=== PATIENT | female | born 1995 | race Caucasian/White ===

== ENCOUNTER 2024-01-25 14:46 | Outpatient (CLI) | payer BC, SELFPAY ==
[2024-01-25 15:12] LABS: Basophils Absolute Auto 0.1 K/mm3 (0.0-0.1); Basophils Percent Auto 0.6 % (0.2-1.2); Eosinophils Absolute Auto 0.1 K/mm3 (0-0.3); Eosinophils Percent Auto 1.3 % (0-4.4); Hematocrit 36.2 % (37.0-47.0); Hemoglobin 12.7 g/dL (12.0-15.0); Immature Granulocyte Absolute 0.02 K/mm3 (0.00-0.031); Immature Granulocyte Percent A 0.2 % (0-0.5); Lymphocytes Absolute Auto 2.16 K/mm3 (0.9-3.2); Lymphocytes Percent Auto 24.6 % (18.3-44.2); Mean Corpuscular HGB Conc 35.1 g/dl (32-36); Mean Corpuscular Hemoglobin 31.2 pg (26-34); Mean Corpuscular Volume 88.9 fl (80-100); Mean Platelet Volume 9.9 fl (7.4-10.4); Monocytes Absolute Auto 0.4 K/mm3 (0.1-0.6); Neutrophils Percent Auto 68.3 % (45.5-73.1); Platelet Count Result 241 k/mm3 (150-375); Red Blood Count 4.07 M/mm3 (4.2-5.4); White Blood Count 8.8 K/mm3 (4.5-10.0)
[2024-01-25 16:10] LABS: HIV 1/2 Ab P24 Ag Result Negative (Negative)
[2024-01-25 16:33] LABS: Hepatitis B Surface Antigen Negative (Negative); Rubella IgG Antibody 5.8 IU/ML
[2024-01-26 08:39] LABS: Rapid Plasma Reagin Non-Reactive (NonReactive)
[2024-01-27 07:28] LABS: CMV IgG Antibody <0.60 U/mL; Varicella IgG Antibody 3.51 S/CO
[2024-02-03 15:03] LABS: CF Result NEGATIVE
== END 2024-01-25 14:47 | disposition home or self-care (01) ==
PROVIDERS: PCP Obstetrics & Gynecology; Visit Provider Obstetrics & Gynecology
DX: N92.1 Excessive and frequent menstruation with irregular cycle (principal)
CPT/HCPCS: 36415; 81220; 85025; 86592; 86644; 86703; 86747; 86762; 86787; 86850; 86900; 86901; 87086; 87340; G0432

== ENCOUNTER 2024-05-10 04:30 | Observation (INO) | payer BC, SELFPAY ==
--- OUTSIDE RECORDS SUMMARY | 2024-05-10 04:19 | XMS_ITS | Encounter Summary ---
Demographics Address [address] [place] [address] [place] [address] Mobile Phone Home Phone Email Address Preferred Language Peruvian Marital Status Single Judaism Affiliation Unknown Race White Ethnic Group Not or Lati no Author Organization [facility] Address [address] [place] [address] Phone Care Team Providers Care Pediatric Hospitalist Name Role Phone Tania Berry DO Primary Care Provider [phone] Referring, Unknown MD Primary Care Provider Unav ailable Encounter Details Date Type Department Care Team (Late st Contact Info) Description 03/11/2022 Orders Only [facility] [address] [place] [address] Scanning, Provider Social History Tobacco Use Types Packs/Day Years Used Date Smoking Tobacco: Never Smokeless Tobacco: Never Alcohol Use Standard Drinks/Week Comments No 0 (1 standard drink = 0.6 oz pur e alcohol) PHQ-2 Answer Date Recorded PHQ-2 Total Score (If total score is 3 or more points, staff should administer the PHQ-9) 1 09/19/2019 Comments No Sex and Gender Information Value Date Recorded Sex Assigned at Not on file Legal Sex Female 7:32 PM BARREL INSPECTOR Gender Identity Not on file Sexual Orientation Not on file Occupation Industry Job Start Date Job End Date Insurance Not on file Not on file Not on file documented as of this encounter Plan of Treatment Not on file documented as of this encounter Procedures Procedure Name Priority Date/Time Associated Diagnosis Comments SCAN - LABS 03/11/2022 documented in this encounter Results * SCAN - LABS (03/11/2022) us Provider Scanning Final Result documented in this encounter Visit Diagnoses Not on filedocumented in this encounter Care Teams Pediatric Hospitalist Relationship Specialty Start Date End Date Tania Berry DO PCP - General Family Medicine 09/24/17 11/26/23 Referring, Unknown, PCP - General Pediatrics 03/25/24 documented as of this encounter
--- OUTSIDE RECORDS SUMMARY | 2024-05-10 04:19 | XMS_ITS | Clinical Summary ---
Author Organization [facility] [address] Address [address] [place] [address] Phone Care Team Providers Care Forming Fixer Name Role Phone Referring, Unknown MD Primary Care Provider Unav ailable Allergies No known active allergies Medications clonazePAM (KlonoPIN) 0.5 mg tabletIndicatio ns:Generalized anxiety disorder Take 1 tablet (0.5 mg total) by mouth daily as needed for anxiety 30 tablet 5 0 Active Additional Information Patient not taking.Reported on 12/02/2019 cetirizine (ZyrTEC) 10 mg tablet 0 Active fluticasone propionate (FLONASE) 50 mcg/actuation nasal spray Administer 1-2 sprays into affected nostril(s) daily 0 Active venlafaxine 37.5 mg tablet extended release 24hr 24 hr tablet Take 37.5 mg by mouth daily Active nortriptyline (PAMELOR) 10 mg capsule Take 1 capsule (10 mg total) by mouth nightly 2 Active Active Problems Problem Noted Date Diagnosed Date Chronic constipation 10/20/2019 Overview (10/20/2019): Added automatically from request for surgery [id number] Assessment & Plan (12/29/2019 3:34 PM MACHINIST MATE): Chronic idiopathic constipation secondary to irritable bowel syndrome. I will increase Linzess to 290 micro g daily. Patient was also advised to use and drink juice every day with MiraLax. Follow-up in 3 months Blood in stool 10/20/2019 Overview (10/20/2019): Added automatically from request for surgery [id number] BMI 21.0-21.9, adult 09/19/2019 Generalized anxiety disorder 09/19/2019 Assessment & Plan (09/19/2019 2:50 PM CDT): Recommended counseling. Patient will contact her insurance company for an in- network referral. S/P shoulder surgery 05/03/2018 Overview (09/19/2019): right Assessment & Plan (07/16/2018 11:06 AM CDT): D/C Aleve, trial of diclofenac, take with food as directed. Follow up with Ortho. Chronic right shoulder pain 09/25/2017 Assessment & Plan (01/01/2018 3:05 PM MACHINIST MATE): Cont Aleve, use as directed. Referred to Ortho for further eval/mgmt. Assessment & Plan (09/25/2017 11:46 AM CDT): Encouraged patient to make life-style modifications, such as avoiding lifting heavy objects. ROM exercises and strengthening exercises may also be helpful. May use OTC pain reliever on days where pain levels are > 3. RTC in 3 months. Consider referral to Ortho if no improvement. Resolved Problems Problem Noted Date Diagnosed Date Resolved Date Impingement syndrome of right shoulder 11/03/2018 09/19/2019 Overview (11/03/2018): Added automatically from request for surgery [id number] Arthritis of right acromioclavicular joint 11/03/2018 09/19/2019 Overview (11/03/2018): Added automatically from request for surgery [id number] Biceps tendinitis on right 11/03/2018 0 09/19/2019 Overview (11/03/2018): Added automatically from request for surgery [id number] Nontraumatic incomplete tear of right rotator cuff 09/06/2018 09/19/2019 Subacromial impingement of right shoulder 03/19/2018 09/19/2019 Overuse injury 09/25/2017 09/19/2019 Otitis media 12/11/2013 05/18/2017 Overview (05/22/2016): Otitis media Immunizations Immunization Administration Dates Next Due Influenza, Quadrivalent, Spl it, Preservative Free, Intramuscular 12/02/2018 Meningococcal MCV4P (Menactra) 09/23/2013 Varicella 09/23/2013 Surgical History Surgery Date Site/Laterality Comments COLONOSCOPY 11/28/2019 first SHOULDER SURGERY 02/16/2018 - 02/15/2019 Medical History Medical History Date Comments Motion sickness not very often Dysmenorrhea treated with oral contraceptive Improved 11/18/18 Irritable bowel syndrome Family History Medical History Relation Name Comments Diabetes Maternal Grandmother Hypertension Mother Kidney disease Mother Relation Name Status Comments Maternal Grandmother Mother Social History Tobacco Use Types Packs/Day Years Used Date Smoking Tobacco: Never Smokeless Tobacco: Never Tobacco Cessation:Counseling Given: Not Answered Alcohol Use Standard Drinks/Week Comments No 0 (1 standard drink = 0.6 oz pur e alcohol) PHQ-2 Answer Date Recorded PHQ-2 Total Score (If total score is 3 or more points, staff should administer the PHQ-9) 1 09/19/2019 Comments No Sex and Gender Information Value Date Recorded Sex Assigned at Not on file Legal Sex Female 7:32 PM MACHINIST MATE Gender Identity Not on file Sexual Orientation Not on file Occupation Industry Job Start Date Job End Date Not on file Not on file Not on file Not on file Obstetrics History Para Term AB IAB SAB Ectopic Multiple Livin g Live Births 0 0 0 0 0 0 0 0 0 0 0 Last Filed Vital Signs Vital Sign Reading Time Taken Comments Blood Pressure 120/82 03/27/2023 3:18 PM MACHINIST MATE Pulse 91 12/29/2019 3:23 PM MACHINIST MATE Temperature 36.6 C (97.8 F) 12/29/2019 3:23 PM MACHINIST MATE Respiratory Rate 16 12/29/2019 3:23 PM MACHINIST MATE Oxygen Saturation 99% 12/29/2019 3:23 PM MACHINIST MATE Inhaled Oxygen Concentration - - Weight 52.6 kg (116 lb) 03/27/2023 3:18 PM MACHINIST MATE Height 157.5 cm (5' 2 ) 03/27/2023 3:18 PM MACHINIST MATE Body Mass Index 21.22 03/27/2023 3:18 PM MACHINIST MATE Plan of Treatment Health Maintenance Due Date Last Done Comments Hepatitis C Screening 1995 HPV Vaccines (3 - 3-dose series) 05/18/2013 02/23/2013, 10/13/2012 Varicella Vaccines (2 of 2 - 13+ 2-dose series) 10/21/2013 09/23/2013, 09/23/2013 Hepatitis B Screening 2014 Depression Screening 09/18/2020 09/19/2019, 12/02/2018, 01/01/2018, Additional history exists Cervical Cancer Screening 03/07/20232022, 12/02/2019, 05/18/2017 Regular Well Visit/Exam 18-64 03/27/2024 03/27/2023, 03/07/2022, 12/19/2020, Additional history exists DTaP/Tdap/Td Vaccine (2 - Td or Tdap) 08/13/2030 08/13/2020 Influenza Vaccine Discontinued 03/13/2020, 12/02/2018 Pneumococcal vaccine <65 Aged Out No longer eligible based on patient's age to complete this topic Medical Devices Implanted Type Area Bracelet And Brooch Maker Device Identifier Shelf Expiration Date Model / Serial / Lot [employer] Ar-2923bc Pushlock 2.9mm 12.5mm Cannulated Eyelet Handle Assembly Press Operator Short - [id number] Implanted:Qty: 1 on 11/25/2018 by Scott Mayo MD at [facility] Right: Shoulder [employer] 08/15/2020 AR-2923BC / / [id number] Procedures Procedure Name Priority Date/Time Associated Diagnosis Comments PAP WITH REFLEX TO HIGH RISK HPV Routine 03/07/2022 9:10 AM MACHINIST MATE Screening for malignant neoplasm of the cervix from Last 3 Months or Most Recently Relevant to Health Maintenance Results * Pap with reflex to High Risk HPV (03/07/2022 9:10 AM MACHINIST MATE) Thin prep (Pap test) 03/07/2022 9:10 AM MACHINIST MATE 03/07/2022 9:10 AM MACHINIST MATE Narrative PATHOLOGY CH - 03/11/2022 1:09 PM MACHINIST MATE [facility] Department of Pathology [address] [place], [place] [id number] Final Report Note to Patients: This report may contain a detailed description of human tissue sent by a health care provider to the laboratory for pathologic evaluation. The content of this report is essential for diagnosis and may provide important critical findings. This information may be unfamiliar to patients to review without a medical professional present. It is advised that the patient review this report in the presence of a health care provider who can answer questions and explain the details. Patient Name: LYUDMILA CODY Address: [address] [place] [address] Gender: F : 1995 (Age: 26) Service: Location: N : [id number] [facility] #: [id number] Patient Type: SPECIMEN Taken: 03/07/2022 Received: 03/07/2022 Accessioned:: 03/10/2022 Reported: 03/11/2022 Physician(s): MD Sandra Perez MD Diagnosis: Source of Specimen: Imaged Thinprep Pap Test w/ Reflex HPV - Snow Shoveler Cytologic Material Specimen Adequacy: - Satisfactory for evaluation; endocervical/transformation zone component present General Category: - Negative for intraepithelial lesion or malignancy KEITH Pathak(ASCP) Report Electronically Reviewed and Signed Out By KEITH Pathak(ASCP) 03/11/2022 13:09:42Specimen(s) Received: A: Imaged Thinprep Pap Test w/ Reflex HPV - Snow Shoveler Cytologic Material Clinical History: Last Menstrual Period: 02/17/22 The Pap test is a screening test used to aid in the detection of cervical cancer and its precursors. It should not be the sole means by which malignant and premalignant lesions are diagnosed. Both false negative and false positive results may occur. It also has poor sensitivity for the detection of endometrial lesions and should not be used to evaluate suspected endometrial abnormalities. For these reasons it is most important to obtain Pap tests at regular intervals. The performance characteristics of some immunohistochemical stains, fluorescence in-situ hybridization tests and immunophenotyping by flow cytometry cited in this report (if any) were determined by the Surgical Pathology Department at [facility] as part of an ongoing quality improvement consultant program and in compliance with federally mandated regulations drawn from the Clinical Laboratory Improvement Act of 1988 (CLIA '88). Some of these tests rely on the use of analyte specific reagents and are subject to specific labeling requirements by the US Food and Drug Administration. Such diagnostic tests may only be performed in a facility that is certified by the Department of Health and Human Services as a high complexity laboratory under CLIA '88. The FDA has determined that such clearance or approval is not necessary. This test is used for clinical purposes. It should not be regarded as investigational or for research. Nevertheless, federal rules concerning the medical use of analyte specific reagents require that the following disclaimer be attached to the report: This test was developed and its performance characteristics determined by the Surgical Pathology Department [facility]. It has not been cleared or approved by the U. S. Food and Drug Administration. Sandra Vincent MD LAB CYTOLOGY ORDERABL ES Final Result Performing Organization Address City/State/ZIP [place] Phone Number PATHOLOGY [address] [place] [address] from Last 3 Months or Most Recently Relevant to Health Maintenance Insurance [employer] [facility] HEALTHLINK OPEN ACCESS HEALTHLINK OPEN ACCESS Advance Directives For more information, please contact: [phone] * Full Code (Latest Code Status on File) Date Activated Date Inactivated Comments 11/28/2019 1:04 PM 11/28/2019 7:27 PM Care Teams Forming Fixer Relationship Specialty Start Date End Date Referring, Unknown, PCP - General Pediatrics 03/25/24
--- OUTSIDE RECORDS SUMMARY | 2024-05-10 04:19 | XMS_ITS | Referral Summary ---
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 I will increase Linzess to 290 micro g daily. Patient was also advised to use and drink juice every day with MiraLax. Follow-up in 3 months Blood in stool 10/20/2019 Overview (10/20/2019): Added automatically from request for surgery [id number] BMI 21.0-21.9, adult 09/19/2019 Generalized anxiety disorder [...] 09/25/2017 Assessment & Plan (01/01/2018 3:05 PM DATA REVIEWER): Cont Aleve, use as directed. Referred to [...] (11/03/2018): Added automatically from request for surgery [id number] Arthritis of right acromioclavicular joint 11/03/2018 09/19/2019 Overview (11/03/2018): Added automatically from request for surgery [id number] Biceps tendinitis on right 11/03/2018 0 09/19/2019 Overview (11/03/2018): Added automatically from request for surgery [id number] Nontraumatic incomplete tear of right rotator cuff 09/06/2018 09/19/2019 Subacromial impingement of right shoulder 03/19/2018 09/19/2019 Overuse injury 09/25/2017 09/19/2019 Otitis media 12/11/2013 05/18/2017 Overview (05/22/2016): Otitis media Immunizations Immunization Administration Dates Next Due Influenza, Quadrivalent, Spl it, Preservative Free, Intramuscular 12/02/2018 Meningococcal MCV4P (Menactra) 09/23/2013 Varicella 09/23/2013 Social History Tobacco Use Types Packs/Day Years [...] on file Legal Sex Female 7:32 PM DATA REVIEWER Gender Identity Not on file Sexual Orientation Not on file Occupation Industry Job Start Date Job End Date Not on file Not on file Not on file Not on file Last Filed Vital Signs Vital Sign Reading Time Taken Comments Blood Pressure 120/82 03/27/2023 3:18 PM DATA REVIEWER Pulse 91 12/29/2019 3:23 PM DATA REVIEWER Temperature 36.6 C (97.8 F) 12/29/2019 3:23 PM DATA REVIEWER Respiratory Rate 16 12/29/2019 3:23 PM DATA REVIEWER Oxygen Saturation 99% 12/29/2019 3:23 PM DATA REVIEWER Inhaled Oxygen Concentration - - Weight 52.6 kg (116 lb) 03/27/2023 3:18 PM DATA REVIEWER Height 157.5 cm (5' 2 ) 03/27/2023 3:18 PM DATA REVIEWER Body Mass Index 21.22 03/27/2023 3:18 PM DATA REVIEWER Plan of Treatment Not on file Medical Devices Implanted Type Area Deposit Clerk Device Identifier Shelf Expiration Date Model / Serial / Lot [employer] Ar-2923bc Pushlock 2.9mm 12.5mm Cannulated Eyelet Handle Orthotic Finish Grinding Technician Short - [id number] Implanted:Qty: 1 on 11/25/2018 by Scott Mayo MD at [facility] Right: Shoulder [employer] 08/15/2020 AR-2923BC / / [id number] Procedures Procedure Name Priority Date/Time Associated Diagnosis Comments PAP WITH REFLEX TO HIGH RISK HPV Routine 03/07/2022 9:10 AM DATA REVIEWER Screening for malignant neoplasm of the cervix from Last 3 Months or Most Recently Relevant to Health Maintenance Results * Pap with reflex to High Risk HPV (03/07/2022 9:10 AM DATA REVIEWER) Thin prep (Pap test) 03/07/2022 9:10 AM DATA REVIEWER 03/07/2022 9:10 AM DATA REVIEWER Narrative PATHOLOGY CH - 03/11/2022 1:09 PM DATA REVIEWER [facility] Department of Pathology [address] [place] [id number] Final Report Note to Patients: This report [...] the details. Patient Name: LYUDMILA CODY Address: [address] [place] [address] Gender: F : 1995 (Age: 26) Service: Location: N : [id number] [facility] #: [id number] Patient Type: SPECIMEN Taken: 03/07/2022 Received: 03/07/2022 Accessioned:: 03/10/2022 Reported: 03/11/2022 Physician(s): MD Sandra Perez MD Diagnosis: Source of Specimen: Imaged Thinprep Pap Test w/ Reflex HPV - Reduction Furnace Operator Helper Cytologic Material Specimen Adequacy: - Satisfactory for evaluation; endocervical/transformation zone component present General Category: - Negative for intraepithelial lesion or malignancy KETIH Pathak(ASCP) Report Electronically Reviewed and Signed Out By KEITH Pathak(ASCP) 03/11/2022 13:09:42Specimen(s) Received: A: Imaged Thinprep Pap Test w/ Reflex HPV - Reduction Furnace Operator Helper Cytologic Material Clinical History: Last Menstrual Period: [...] determined by the Surgical Pathology Department at [facility] as part of an ongoing associate quality engineer program and in compliance with federally mandated [...] characteristics determined by the Surgical Pathology Department [facility]. It has not been cleared or approved by the U. S. Food and Drug Administration. Sandra Vincent MD LAB CYTOLOGY ORDERABL ES Final Result PATHOLOGY [address] [place] [address] from Last 3 Months or Most Recently Relevant to Health Maintenance Insurance [employer] [place] [address] HEALTHLINK OPEN ACCESS Advance Directives For more information, please contact: [phone] * Full Code (Latest Code Status on File) Date Activated Date Inactivated Comments 11/28/2019 1:04 PM 11/28/2019 7:27 PM Care Teams Grizzly Worker Relationship Specialty Start Date End Date Referring, Unknown, PCP - General Pediatrics 03/25/24
[2024-05-10 04:26] VITALS: BP 132/92; PULSE 73; RESP 14; TEMP 36.5; O2SAT 100
--- OUTSIDE RECORDS SUMMARY | 2024-05-10 04:41 | XMS_ITS | Clinical Summary ---
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 I will increase Linzess to 290 micro g daily. Patient was also advised to use and drink juice every day with MiraLax. Follow-up in 3 months Blood in stool 10/20/2019 Overview (10/20/2019): Added automatically from request for surgery [id number] BMI 21.0-21.9, adult 09/19/2019 Generalized anxiety disorder [...] 09/25/2017 Assessment & Plan (01/01/2018 3:05 PM RN PALLIATIVE CARE): Cont Aleve, use as directed. Referred to [...] (11/03/2018): Added automatically from request for surgery [id number] Arthritis of right acromioclavicular joint 11/03/2018 09/19/2019 Overview (11/03/2018): Added automatically from request for surgery [id number] Biceps tendinitis on right 11/03/2018 0 09/19/2019 Overview (11/03/2018): Added automatically from request for surgery [id number] Nontraumatic incomplete tear of right rotator cuff [...] on file Legal Sex Female 7:32 PM RN PALLIATIVE CARE Gender Identity Not on file Sexual Orientation [...] Comments Blood Pressure 120/82 03/27/2023 3:18 PM RN PALLIATIVE CARE Pulse 91 12/29/2019 3:23 PM RN PALLIATIVE CARE Temperature 36.6 C (97.8 F) 12/29/2019 3:23 PM RN PALLIATIVE CARE Respiratory Rate 16 12/29/2019 3:23 PM RN PALLIATIVE CARE Oxygen Saturation 99% 12/29/2019 3:23 PM RN PALLIATIVE CARE Inhaled Oxygen Concentration - - Weight 52.6 kg (116 lb) 03/27/2023 3:18 PM RN PALLIATIVE CARE Height 157.5 cm (5' 2 ) 03/27/2023 3:18 PM RN PALLIATIVE CARE Body Mass Index 21.22 03/27/2023 3:18 PM RN PALLIATIVE CARE Plan of Treatment Health Maintenance Due Date [...] this topic Medical Devices Implanted Type Area Search Advertising Strategist Device Identifier Shelf Expiration Date Model / Serial / Lot [employer] Ar-2923bc Pushlock 2.9mm 12.5mm Cannulated Eyelet Handle Decision Support Analyst Short - [id number] Implanted:Qty: 1 on 11/25/2018 by Scott Mayo MD at [facility] Right: Shoulder [employer] 08/15/2020 AR-2923BC / / [id number] Procedures Procedure Name Priority Date/Time Associated Diagnosis Comments PAP WITH REFLEX TO HIGH RISK HPV Routine 03/07/2022 9:10 AM RN PALLIATIVE CARE Screening for malignant neoplasm of the cervix from Last 3 Months or Most Recently Relevant to Health Maintenance Results * Pap with reflex to High Risk HPV (03/07/2022 9:10 AM RN PALLIATIVE CARE) Thin prep (Pap test) 03/07/2022 9:10 AM RN PALLIATIVE CARE 03/07/2022 9:10 AM RN PALLIATIVE CARE Narrative PATHOLOGY CH - 03/11/2022 1:09 PM RN PALLIATIVE CARE [facility] Department of Pathology [address] [place], [place] [id number] Final Report Note to Patients: This report [...] the details. Patient Name: LYUDMILA CODY Address: [address] [place] [address] Gender: F : 1995 (Age: 26) Service: Location: N : [id number] [facility] #: [id number] Patient Type: SPECIMEN Taken: 03/07/2022 Received: 03/07/2022 Accessioned:: 03/10/2022 Reported: 03/11/2022 Physician(s): MD Sandra Perez MD Diagnosis: Source of Specimen: Imaged Thinprep Pap Test w/ Reflex HPV - Accounting Lecturer Cytologic Material Specimen Adequacy: - Satisfactory for evaluation; endocervical/transformation zone component present General Category: - Negative for intraepithelial lesion or malignancy KEITH Pathak(ASCP) Report Electronically Reviewed and Signed Out By KEITH Pathak(ASCP) 03/11/2022 13:09:42Specimen(s) Received: A: Imaged Thinprep Pap Test w/ Reflex HPV - Accounting Lecturer Cytologic Material Clinical History: Last Menstrual Period: [...] the Surgical Pathology Department at [facility] as part of an ongoing fiberglass quality technician program and in compliance with federally mandated [...] determined by the Surgical Pathology Department [facility]. It has not been cleared or approved by the U. S. Food and Drug Administration. Sandra Vincent MD LAB CYTOLOGY ORDERABL ES Final Result Performing Organization Address City/State/ZIP [place] Phone Number PATHOLOGY [address] [place] [address] from Last 3 Months or Most Recently Relevant to Health Maintenance Insurance [employer] [facility] HEALTHLINK OPEN ACCESS HEALTHLINK OPEN ACCESS Advance Directives For more information, please contact: [phone] * Full Code (Latest Code Status on File) Date Activated Date Inactivated Comments 11/28/2019 1:04 PM 11/28/2019 7:27 PM Care Teams Fourth Officer Relationship Specialty Start Date End Date Referring, Unknown, PCP - General Pediatrics 03/25/24
--- OUTSIDE RECORDS SUMMARY | 2024-05-10 04:41 | XMS_ITS | Referral Summary ---
Author Organization CC [facility] [address] Address [address] [place] [address] Phone Care Team Providers Care Bridge/Structure Inspection Team Leader Name Role Phone Referring, Unknown MD Primary [...] (10/20/2019): Added automatically from request for surgery [id number] Assessment & Plan (12/29/2019 3:34 PM CO FOUNDER): Chronic idiopathic constipation secondary to irritable bowel syndrome. I will increase Linzess to 290 micro g daily. Patient was also advised to use and drink juice every day with MiraLax. Follow-up in 3 months Blood in stool 10/20/2019 Overview (10/20/2019): Added automatically from request for surgery [id number] BMI 21.0-21.9, adult 09/19/2019 Generalized anxiety disorder [...] 09/25/2017 Assessment & Plan (01/01/2018 3:05 PM CO FOUNDER): Cont Aleve, use as directed. Referred to [...] (11/03/2018): Added automatically from request for surgery [id number] Arthritis of right acromioclavicular joint 11/03/2018 09/19/2019 Overview (11/03/2018): Added automatically from request for surgery [id number] Biceps tendinitis on right 11/03/2018 0 09/19/2019 Overview (11/03/2018): Added automatically from request for surgery [id number] Nontraumatic incomplete tear of right rotator cuff [...] on file Legal Sex Female 7:32 PM CO FOUNDER Gender Identity Not on file Sexual Orientation Not on file Occupation Industry Job Start Date Job End Date Not on file Not on file Not on file Not on file Last Filed Vital Signs Vital Sign Reading Time Taken Comments Blood Pressure 120/82 03/27/2023 3:18 PM CO FOUNDER Pulse 91 12/29/2019 3:23 PM CO FOUNDER Temperature 36.6 C (97.8 F) 12/29/2019 3:23 PM CO FOUNDER Respiratory Rate 16 12/29/2019 3:23 PM CO FOUNDER Oxygen Saturation 99% 12/29/2019 3:23 PM CO FOUNDER Inhaled Oxygen Concentration - - Weight 52.6 kg (116 lb) 03/27/2023 3:18 PM CO FOUNDER Height 157.5 cm (5' 2 ) 03/27/2023 3:18 PM CO FOUNDER Body Mass Index 21.22 03/27/2023 3:18 PM CO FOUNDER Plan of Treatment Not on file Medical Devices Implanted Type Area Acid Wash Operator Device Identifier Shelf Expiration Date Model / Serial / Lot [employer] Ar-2923bc Pushlock 2.9mm 12.5mm Cannulated Eyelet Handle Manufacturing Business Analyst Short - [id number] Implanted:Qty: 1 on 11/25/2018 by Scott Mayo MD at [facility] Right: Shoulder [employer] 08/15/2020 AR-2923BC / / [id number] Procedures Procedure Name Priority Date/Time Associated Diagnosis Comments PAP WITH REFLEX TO HIGH RISK HPV Routine 03/07/2022 9:10 AM CO FOUNDER Screening for malignant neoplasm of the cervix from Last 3 Months or Most Recently Relevant to Health Maintenance Results * Pap with reflex to High Risk HPV (03/07/2022 9:10 AM CO FOUNDER) Thin prep (Pap test) 03/07/2022 9:10 AM CO FOUNDER 03/07/2022 9:10 AM CO FOUNDER Narrative PATHOLOGY CH - 03/11/2022 1:09 PM CO FOUNDER [facility] Department of Pathology [address] [place] [id number] Final Report Note to Patients: This [...] the details. Patient Name: LYUDMILA CODY Address: [address] [place] [address] Gender: F : 1995 (Age: 26) Service: Location: N : [id number] [facility] #: [id number] Patient Type: SPECIMEN Taken: 03/07/2022 Received: 03/07/2022 Accessioned:: 03/10/2022 Reported: 03/11/2022 Physician(s): MD Sandra Perez MD Diagnosis: Source of Specimen: Imaged Thinprep Pap Test w/ Reflex HPV - Sales Outfitter Cytologic Material Specimen Adequacy: - Satisfactory for evaluation; endocervical/transformation zone component present General Category: - Negative for intraepithelial lesion or malignancy KEITH Pathak(ASCP) Report Electronically Reviewed and Signed Out By KEITH Pathak(ASCP) 03/11/2022 13:09:42Specimen(s) Received: A: Imaged Thinprep Pap Test w/ Reflex HPV - Sales Outfitter Cytologic Material Clinical History: Last Menstrual Period: [...] the Surgical Pathology Department at [facility] as part of an ongoing manager of quality program and in compliance with federally mandated [...] characteristics determined by the Surgical Pathology Department [facility]. It has not been cleared or approved by the U. S. Food and Drug Administration. Sandra Vincent MD LAB CYTOLOGY ORDERABL ES Final Result PATHOLOGY [address] [place] [address] from Last 3 Months or Most Recently Relevant to Health Maintenance Insurance [address] [place] [address] [employer] OPEN ACCESS Advance Directives For more information, please contact: [phone] * Full Code (Latest Code Status on File) Date Activated Date Inactivated Comments 11/28/2019 1:04 PM 11/28/2019 7:27 PM Care Teams Bridge/Structure Inspection Team Leader Relationship Specialty Start Date End Date Referring, Unknown, PCP - General Pediatrics 03/25/24
--- OUTSIDE RECORDS SUMMARY | 2024-05-10 04:41 | XMS_ITS | Encounter Summary ---
Demographics Address [address] [place] [address] [place] [address] Mobile Phone Home Phone Email Address Preferred Language Georgian Marital Status Single Buddhism Affiliation Unknown Race White Ethnic Group Not or Lati no Author Organization [facility] Address [address] [employer] [address] [place] [address] Phone Care Team Providers Care Paper Pattern Folder Name Role Phone Tania Berry DO Primary Care Provider [phone]- [phone] Referring, Unknown MD Primary Care Provider Unav ailable Encounter Details Date Type Department Care Team (Late st Contact Info) Description 03/11/2022 Orders Only [facility] [address] [employer] [place] [address] Scanning, Provider Social History Tobacco [...] on file Legal Sex Female 7:32 PM CHIEF WELLNESS OFFICER Gender Identity Not on file Sexual Orientation [...] on filedocumented in this encounter Care Teams Paper Pattern Folder Relationship Specialty Start Date End Date Tania Berry DO PCP - General Family Medicine 09/24/17 11/26/23 Referring, Unknown, PCP - General Pediatrics 03/25/24 documented as of this encounter
[2024-05-10 05:02] VITALS: BMI 22.9
--- NOTE | 2024-05-10 05:02 | OBADM ---
This patient, Diana Ramsay, admitted to the OB room OB Post 117 for observation. Patient/family oriented to hospital policies and general routines including ID bracelet, bed and alarms, visiting hours, pain management, procedures, bathroom and other care routines, personal items, smoking policy, room service/diet, and visiting hours. Patient/Family are encouraged to report perceived risks to care and to ask questions if they do not understand what they are told or what they should do.
--- NOTE | 2024-05-10 05:21 | PC.NURSE ---
Called Dr. Munoz to report pt c/o constipation x1 week. Pt has used miralax daily x1 week, fleets enema 2 days ago, and mag citrate last night, all with no improvement. Dr. Munoz ordered a mineral oil enema. Verbal order repeated back.
[2024-05-10 05:41] LABS: Add Urine Microscopic? YES; Appearance Urine Cloudy (Clear); Bacteria Urine 4+ /hpf; Bilirubin Urine Negative (Negative); Blood Urine Negative (Negative); Color Urine Yellow (Yellow); Glucose Urine UA Negative (Negative); Ketones Urine Negative (Negative); Leukocyte Esterase Ur 1+ LEU/UL (Negative); Need Manual Microscopic Reviewed; Nitrate Urine Negative (Negative); Non Pathogenic Casts 0-2; Protein Urine Negative (Negative); RBC Urine 0-2 /hpf (0-2); Specific Grav Ur 1.008 (1.001-1.035); Squamous Epithelial Cell Urine Few /hpf (Few); Urobilinogen Urine 0.2 mg/dL (<2.0); pH Urine 7.5 (5.0-9.0)
[2024-05-10] MEDS: SODIUM CHLORIDE 0.9% IV 1,000 ML 999 ML IV CONT (07:39)
[2024-05-10 07:47] LABS: Basophils Absolute Auto 0.1 K/mm3 (0.0-0.1); Basophils Percent Auto 0.7 % (0.2-1.2); Eosinophils Absolute Auto 0.2 K/mm3 (0-0.3); Eosinophils Percent Auto 1.8 % (0-4.4); Hematocrit 32.2 % (37.0-47.0); Hemoglobin 11.2 g/dL (12.0-15.0); Immature Granulocyte Absolute 0.08 K/mm3 (0.00-0.031); Immature Granulocyte Percent A 0.7 % (0-0.5); Lymphocytes Percent Auto 22.5 % (18.3-44.2); Mean Corpuscular HGB Conc 34.8 g/dl (32-36); Mean Corpuscular Hemoglobin 32.7 pg (26-34); Mean Corpuscular Volume 94.2 fl (80-100); Mean Platelet Volume 10.2 fl (7.4-10.4); Monocytes Absolute Auto 0.6 K/mm3 (0.1-0.6); Monocytes Percent Auto 5.6 % (2.6-8.5); Neutrophils Absolute Auto 7.3 K/mm3 (1.3-6.7); Neutrophils Percent Auto 68.7 % (45.5-73.1); Platelet Count Result 241 k/mm3 (150-375); Red Blood Count 3.42 M/mm3 (4.2-5.4); Red Cell Distribution Width 13.2 % (11.5-14.5); White Blood Count 10.7 K/mm3 (4.5-10.0)
--- NOTE | 2024-05-10 08:07 | PC.NURSE ---
Mineral oil enema discussed with patient. Patient states that she is comfortable administering the enema herself. Patient encouraged to call out if she needs any help or if not feeling well.
[2024-05-10 08:11] LABS: Alanine Aminotransferase 17 U/L (6-35); Alkaline Phosphatase 62 U/L (38-126); Anion Gap 6 mmol/L (4-12); Aspartate Amino Transferase 23 U/L (14-36); Bilirubin,Total 0.5 mg/dL (0.2-1.3); Blood Urea Nitrogen 5 mg/dL (7-17); Calcium 8.7 mg/dL (8.4-10.2); Carbon Dioxide 24 mmol/L (22-30); Chloride 106 mmol/L (98-107); Estimated CRCL calculation 119 ml/min; Estimated Glomerular Filt Rate > 60; Glucose 83 mg/dL (65-110); Potassium 3.7 mmol/L (3.4-5.0); Sodium 136 mmol/L (137-145)
--- NOTE | 2024-05-10 08:39 | PC.NURSE ---
Patient states that she had good results. States that she is feeling better now. IV fluids still infusing.
--- NOTE | 2024-05-10 09:50 | PC.NURSE ---
Dr Munoz informed that patient had a large BM after Enema, states that she is feeling better now. Ok to dc home.
--- NOTE | 2024-05-11 07:48 | P.PNOB_ITS ---
OB - Triage/Final Diagnosis Visit Information Comments/Additional reasons for admission: I have assessed the risk for this patient, Diana Ramsay, and determined that she would benefit from observation care. Evaluation Laboratory results: Laboratory Tests 05/10/24 05/10/24 05/10/24 04:58 07:37 07:55 WBC 10.7 H RBC 3.42 L Hgb 11.2 L Hct 32.2 L MCV 94.2 MCH 32.7 MCHC 34.8 RDW 13.2 Plt Count 241 MPV 10.2 Immature Gran % (Auto) 0.7 H Neut % (Auto) 68.7 Lymph % (Auto) 22.5 Garland % (Auto) 5.6 Eos % (Auto) 1.8 Baso % (Auto) 0.7 Lymph # (Auto) 2.40 [place] # (Auto) 0.6 Eos # (Auto) 0.2 Baso # (Auto) 0.1 Abs Immat Gran (auto) 0.08 H Absolute Neuts (auto) 7.3 H Absolute Nucleated RBC 0.000 Nucleated RBC % 0.0 Sodium 136 L Potassium 3.7 Chloride 106 Carbon Dioxide 24 Anion Gap 6 BUN 5 L Creatinine 0.46 L Estim Creat Clear Calc 119 Estimated GFR > 60 Glucose 83 Calcium 8.7 Total Bilirubin 0.5 AST 23 ALT 17 Alkaline Phosphatase 62 Total Protein 7.0 Albumin 4.0 Urine Color Yellow Urine Appearance Cloudy H Urine pH 7.[address] Urine Protein Negative Urine Glucose (UA) Negative Urine Ketones Negative Ur Blood (Man) Negative Urine Nitrate Negative Urine Bilirubin Negative Urine Urobilinogen 0.2 Add Ur Microanalysis Reviewed Leukocyte Esterase Rfl 1+ H Urine RBC 0-2 Urine WBC 11-20 H Ur Squamous Epith Cells Few Urine Bacteria 4+ H Urine Casts 0-2 Final Diagnosis (1) Constipation: Code(s): K59.00 - Constipation, unspecified Status: Acute
== END 2024-05-10 10:05 | disposition home or self-care (01) ==
PROVIDERS: Admitting Provider Obstetrics & Gynecology; PCP Family Medicine; Visit Provider Obstetrics & Gynecology
DX: O99.612 Diseases of the digestive system complicating pregnancy, second trimester (principal); K59.00 Constipation, unspecified; Z3A.22 22 weeks gestation of pregnancy
CPT/HCPCS: 36415; 80053; 81001; 85025; 87086; 96374; G0378; G0379; J0696; J7030

== ENCOUNTER 2024-05-18 12:04 | Emergency (ER) | payer BC, SELFPAY ==
[2024-05-18] VITALS (9 sets, daily range): BP systolic 107–129; BP diastolic 68–83; PULSE 72–82; RESP 16–25; TEMP 36.6; O2SAT 100
--- NOTE | 2024-05-18 12:23 | ECG_ITS ---
Test Date: 2024-05-18 12:32:04 Measurements Intervals [place] Rate: 73 P: 43 CA: 124 QRS: 30 QRSD: 80 T: 36 QT: 367 QTc: 405 Interpretive Statements SINUS RHYTHM BASELINE ARTIFACT- I, III, AVR, AVL, AVF NORMAL ECG No previous ECG available for comparison Electronically Signed On 05-18-2024 12:58:14 CDT by Peterson Villanueva D.O.
[2024-05-18 12:43] LABS: Basophils Absolute Auto 0.1 K/mm3 (0.0-0.1); Basophils Percent Auto 0.4 % (0.2-1.2); Eosinophils Absolute Auto 0.2 K/mm3 (0-0.3); Eosinophils Percent Auto 1.3 % (0-4.4); Hematocrit 32.5 % (37.0-47.0); Hemoglobin 11.3 g/dL (12.0-15.0); Immature Granulocyte Absolute 0.07 K/mm3 (0.00-0.031); Immature Granulocyte Percent A 0.6 % (0-0.5); Lymphocytes Absolute Auto 1.91 K/mm3 (0.9-3.2); Lymphocytes Percent Auto 16.3 % (18.3-44.2); Mean Corpuscular HGB Conc 34.8 g/dl (32-36); Mean Platelet Volume 10.2 fl (7.4-10.4); Monocytes Absolute Auto 0.6 K/mm3 (0.1-0.6); Monocytes Percent Auto 4.9 % (2.6-8.5); Neutrophils Percent Auto 76.5 % (45.5-73.1); Platelet Count Result 248 k/mm3 (150-375); Red Blood Count 3.42 M/mm3 (4.2-5.4); Red Cell Distribution Width 13.3 % (11.5-14.5); White Blood Count 11.7 K/mm3 (4.5-10.0)
[2024-05-18 12:45] LABS: Add Urine Microscopic? NO; Appearance Urine Clear (Clear); Bilirubin Urine Negative (Negative); Blood Urine Negative (Negative); Color Urine Yellow (Yellow); Glucose Urine UA Negative (Negative); Ketones Urine Negative (Negative); Leukocyte Esterase Ur Negative LEU/UL (Negative); Nitrate Urine Negative (Negative); Protein Urine Negative (Negative); Specific Grav Ur 1.004 (1.001-1.035); Urobilinogen Urine 0.2 mg/dL (<2.0)
[2024-05-18 12:56] LABS: Alanine Aminotransferase 17 U/L (6-35); Albumin Level 4.3 g/dL (3.5-5.1); Alkaline Phosphatase 70 U/L (38-126); Anion Gap 10 mmol/L (4-12); Aspartate Amino Transferase 21 U/L (14-36); Bilirubin,Total 0.3 mg/dL (0.2-1.3); Blood Urea Nitrogen 7 mg/dL (7-17); Carbon Dioxide 22 mmol/L (22-30); Chloride 104 mmol/L (98-107); Estimated CRCL calculation 124 ml/min; Estimated Glomerular Filt Rate > 60; Glucose 97 mg/dL (65-110); Magnesium 1.9 mg/dL (1.6-2.3); Potassium 3.4 mmol/L (3.4-5.0); Sodium 136 mmol/L (137-145)
[2024-05-18 12:57] LABS: INR 0.9; Prothrombin Time 12.6 Seconds (11.1-14.7)
[2024-05-18 12:58] LABS: Partial Thromboplastin Time 24.9 Seconds (22.3-36.8)
[2024-05-18 13:20] LABS: Influenza A QL RT-PCR Negative (Negative); Influenza B QL RT-PCR Negative (Negative); RSV RNA, RT-PCR Negative (Negative); SARS-CoV-2 RNA PCR Negative (Negative)
--- OUTSIDE RECORDS SUMMARY | 2024-05-18 13:28 | XMS_ITS | Clinical Summary ---
Author Organization CC [facility] [address] Address [address] [place] [address] Phone Care Team Providers Care Radiologic Technologist Chief Name Role Phone Referring, Unknown MD Primary [...] (10/20/2019): Added automatically from request for surgery [id number] Assessment & Plan (12/29/2019 3:34 PM LEVELER HELPER): Chronic idiopathic constipation secondary to irritable bowel syndrome. I will increase Linzess to 290 micro g daily. Patient was also advised to use and drink juice every day with MiraLax. Follow-up in 3 months Blood in stool 10/20/2019 Overview (10/20/2019): Added automatically from request for surgery [id number] BMI 21.0-21.9, adult 09/19/2019 Generalized anxiety disorder [...] 09/25/2017 Assessment & Plan (01/01/2018 3:05 PM LEVELER HELPER): Cont Aleve, use as directed. Referred to [...] (11/03/2018): Added automatically from request for surgery [id number] Arthritis of right acromioclavicular joint 11/03/2018 09/19/2019 Overview (11/03/2018): Added automatically from request for surgery [id number] Biceps tendinitis on right 11/03/2018 0 09/19/2019 Overview (11/03/2018): Added automatically from request for surgery [id number] Nontraumatic incomplete tear of right rotator cuff [...] on file Legal Sex Female 7:32 PM LEVELER HELPER Gender Identity Not on file Sexual Orientation [...] Comments Blood Pressure 120/82 03/27/2023 3:18 PM LEVELER HELPER Pulse 91 12/29/2019 3:23 PM LEVELER HELPER Temperature 36.6 C (97.8 F) 12/29/2019 3:23 PM LEVELER HELPER Respiratory Rate 16 12/29/2019 3:23 PM LEVELER HELPER Oxygen Saturation 99% 12/29/2019 3:23 PM LEVELER HELPER Inhaled Oxygen Concentration - - Weight 52.6 kg (116 lb) 03/27/2023 3:18 PM LEVELER HELPER Height 157.5 cm (5' 2 ) 03/27/2023 3:18 PM LEVELER HELPER Body Mass Index 21.22 03/27/2023 3:18 PM LEVELER HELPER Plan of Treatment Health Maintenance Due Date [...] this topic Medical Devices Implanted Type Area Salt Miner Device Identifier Shelf Expiration Date Model / Serial / Lot [employer] Ar-2923bc Pushlock 2.9mm 12.5mm Cannulated Eyelet Handle Pony Cylinder Press Operator Short - [id number] Implanted:Qty: 1 on 11/25/2018 by Scott Mayo MD at [facility] Right: Shoulder [employer] 08/15/2020 AR-2923BC / / [id number] Procedures Procedure Name Priority Date/Time Associated Diagnosis Comments PAP WITH REFLEX TO HIGH RISK HPV Routine 03/07/2022 9:10 AM LEVELER HELPER Screening for malignant neoplasm of the cervix from Last 3 Months or Most Recently Relevant to Health Maintenance Results * Pap with reflex to High Risk HPV (03/07/2022 9:10 AM LEVELER HELPER) Thin prep (Pap test) 03/07/2022 9:10 AM LEVELER HELPER 03/07/2022 9:10 AM LEVELER HELPER Narrative PATHOLOGY CH - 03/11/2022 1:[address] [facility] Department of Pathology [address] [place], [place] [id number] Final Report Note to Patients: This report [...] the details. Patient Name: LYUDMILA CODY Address: [address] [place] [address] Gender: F : 1995 (Age: 26) Service: Location: N : [id number] [facility] #: [id number] Patient Type: SPECIMEN Taken: 03/07/2022 Received: 03/07/2022 Accessioned:: 03/10/2022 Reported: 03/11/2022 Physician(s): MD Sandra Perez MD Diagnosis: Source of Specimen: Imaged Thinprep Pap Test w/ Reflex HPV - Testing Projects Administrator Cytologic Material Specimen Adequacy: - Satisfactory for evaluation; endocervical/transformation zone component present General Category: - Negative for intraepithelial lesion or malignancy KEITH Pathak(ASCP) Report Electronically Reviewed and Signed Out By KEITH Pathak(ASCP) 03/11/2022 13:09:42Specimen(s) Received: A: Imaged Thinprep Pap Test w/ Reflex HPV - Testing Projects Administrator Cytologic Material Clinical History: Last Menstrual Period: [...] determined by the Surgical Pathology Department at [facility] as part of an ongoing vice president quality program and in compliance with federally [...] characteristics determined by the Surgical Pathology Department [facility]. It has not been cleared or approved by the U. S. Food and Drug Administration. Sandra Vincent MD LAB CYTOLOGY ORDERABL ES Final Result Performing Organization Address City/State/ZIP [place] Phone Number PATHOLOGY [address] [place] [address] from Last 3 Months or Most Recently Relevant to Health Maintenance Insurance [employer] [facility] HEALTHLINK OPEN ACCESS HE[employer] OPEN ACCESS Advance Directives For more information, please contact: [phone] * Full Code (Latest Code Status on File) Date Activated Date Inactivated Comments 11/28/2019 1:04 PM 11/28/2019 7:27 PM Care Teams Radiologic Technologist Chief Relationship Specialty Start Date End Date Referring, Unknown, PCP - General Pediatrics 03/25/24
--- OUTSIDE RECORDS SUMMARY | 2024-05-18 13:28 | XMS_ITS | Encounter Summary ---
Demographics Address [address] [place] [address] [place] [address] Mobile Phone Home Phone Email Address Preferred Language Puerto Rican Marital Status Single Baptist Affiliation Unknown Race White Ethnic Group Not or Lati no Author Organization [facility] Address [address] [place] [address] Phone Care Team Providers Care Tunnel Elastic Operator Lockstitch Name Role Phone Tania Berry DO Primary Care Provider +1- [phone] Referring, Unknown MD Primary Care Provider Unav ailable Encounter Details Date Type Department Care Team (Late st Contact Info) Description 03/11/2022 Orders Only [facility] [address] [place] [address] Scanning, Provider Social History Tobacco [...] on file Legal Sex Female 7:32 PM WINE AND SPIRITS CLERK Gender Identity Not on file Sexual Orientation [...] on filedocumented in this encounter Care Teams Tunnel Elastic Operator Lockstitch Relationship Specialty Start Date End Date Tania Berry DO PCP - General Family Medicine 09/24/17 11/26/23 Referring, Unknown, PCP - General Pediatrics 03/25/24 documented as of this encounter
--- OUTSIDE RECORDS SUMMARY | 2024-05-18 13:28 | XMS_ITS | Referral Summary ---
Author Organization [facility] [address] Address [address] [place] [address] Phone Care Team Providers Care Quality Inspector Name Role Phone Referring, Unknown MD Primary [...] (10/20/2019): Added automatically from request for surgery [id number] Assessment & Plan (12/29/2019 3:34 PM CORRECTION OFFICER HEAD): Chronic idiopathic constipation secondary to irritable bowel syndrome. I will increase Linzess to 290 micro g daily. Patient was also advised to use and drink juice every day with MiraLax. Follow-up in 3 months Blood in stool 10/20/2019 Overview (10/20/2019): Added automatically from request for surgery [id number] BMI 21.0-21.9, adult 09/19/2019 Generalized anxiety disorder [...] 09/25/2017 Assessment & Plan (01/01/2018 3:05 PM CORRECTION OFFICER HEAD): Cont Aleve, use as directed. Referred to [...] (11/03/2018): Added automatically from request for surgery [id number] Arthritis of right acromioclavicular joint 11/03/2018 09/19/2019 Overview (11/03/2018): Added automatically from request for surgery [id number] Biceps tendinitis on right 11/03/2018 0 09/19/2019 Overview (11/03/2018): Added automatically from request for surgery [id number] Nontraumatic incomplete tear of right rotator cuff [...] on file Legal Sex Female 7:32 PM CORRECTION OFFICER HEAD Gender Identity Not on file Sexual Orientation Not on file Occupation Industry Job Start Date Job End Date Not on file Not on file Not on file Not on file Last Filed Vital Signs Vital Sign Reading Time Taken Comments Blood Pressure 120/82 03/27/2023 3:18 PM CORRECTION OFFICER HEAD Pulse 91 12/29/2019 3:23 PM CORRECTION OFFICER HEAD Temperature 36.6 C (97.8 F) 12/29/2019 3:23 PM CORRECTION OFFICER HEAD Respiratory Rate 16 12/29/2019 3:23 PM CORRECTION OFFICER HEAD Oxygen Saturation 99% 12/29/2019 3:23 PM CORRECTION OFFICER HEAD Inhaled Oxygen Concentration - - Weight 52.6 kg (116 lb) 03/27/2023 3:18 PM CORRECTION OFFICER HEAD Height 157.5 cm (5' 2 ) 03/27/2023 3:18 PM CORRECTION OFFICER HEAD Body Mass Index 21.22 03/27/2023 3:18 PM CORRECTION OFFICER HEAD Plan of Treatment Not on file Medical Devices Implanted Type Area Hose Inspector And Patcher Device Identifier Shelf Expiration Date Model / Serial / Lot [employer] Ar-2923bc Pushlock 2.9mm 12.5mm Cannulated Eyelet Handle Powder Worker Short - [id number] Implanted:Qty: 1 on 11/25/2018 by Scott Mayo MD at [facility] Right: Shoulder [employer] 08/15/2020 AR-2923BC / / [id number] Procedures Procedure Name Priority Date/Time Associated Diagnosis Comments PAP WITH REFLEX TO HIGH RISK HPV Routine 03/07/2022 9:10 AM CORRECTION OFFICER HEAD Screening for malignant neoplasm of the cervix from Last 3 Months or Most Recently Relevant to Health Maintenance Results * Pap with reflex to High Risk HPV (03/07/2022 9:10 AM CORRECTION OFFICER HEAD) Thin prep (Pap test) 03/07/2022 9:10 AM CORRECTION OFFICER HEAD 03/07/2022 9:10 AM CORRECTION OFFICER HEAD Narrative PATHOLOGY CH - 03/11/2022 1:09 PM CORRECTION OFFICER HEAD [facility] Department of Pathology [address] [place] [phone] Final Report Note to Patients: This [...] the details. Patient Name: LYUDMILA CODY Address: [address] [place] [address] Gender: F : 1995 (Age: 26) Service: Location: N : [id number] [facility] #: [id number] Patient Type: SPECIMEN Taken: 03/07/2022 Received: 03/07/2022 Accessioned:: 03/10/2022 Reported: 03/11/2022 Physician(s): MD Sandra Perez MD Diagnosis: Source of Specimen: Imaged Thinprep Pap Test w/ Reflex HPV - Rn Physician Office Cytologic Material Specimen Adequacy: - Satisfactory for evaluation; endocervical/transformation zone component present General Category: - Negative for intraepithelial lesion or malignancy KEITH Pathak(ASCP) Report Electronically Reviewed and Signed Out By KEITH Pathak(ASCP) 03/11/2022 13:09:42Specimen(s) Received: A: Imaged Thinprep Pap Test w/ Reflex HPV - Rn Physician Office Cytologic Material Clinical History: Last Menstrual Period: [...] determined by the Surgical Pathology Department at [facility] as part of an ongoing research quality assurance specialist program and in compliance with federally mandated [...] characteristics determined by the Surgical Pathology Department [facility]. It has not been cleared or approved by the U. S. Food and Drug Administration. Sandra Vincent MD LAB CYTOLOGY ORDERABL ES Final Result PATHOLOGY [address] [place] [address] from Last 3 Months or Most Recently Relevant to Health Maintenance Insurance [employer] [place] [address] [employer] OPEN ACCESS Advance Directives For more information, please contact: [phone] * Full Code (Latest Code Status on File) Date Activated Date Inactivated Comments 11/28/2019 1:04 PM 11/28/2019 7:27 PM Care Teams Quality Inspector Relationship Specialty Start Date End Date Referring, Unknown, PCP - General Pediatrics 03/25/24
--- NOTE | 2024-05-18 13:57 | ED_ITS ---
HPI - General Adult General Chief complaint: Unspecified Stated complaint: tunnel vision, 23 weeks Time Seen by Provider: 05/18/24 12:18 History of Present Illness HPI narrative: 29-year-old female presents emergency department for evaluation for an episode lightheadedness and tunnel vision earlier today. Patient states the symptoms had persisted for a period of time she touch base with her OB Gyne and they referred her emergency department. Patient states she is also having some worsening shortness breath at nighttime when she lays flat. At time of evaluation patient denies any chest pain or shortness of breath. Patient denies any abdominal pain, denies any vaginal bleeding vaginal discharge. Patient states she has been having adequate p.o. intake. Related Data Home Medications ?Medication ?Instructions ?Recorded ?Confirmed ?Last Taken ?Type vitamins-iron fumarate 65 1 tablet PO DAILY 01/12/24 05/10/24 05/09/24 History mg iron-folic acid 1 mg tablet Allergies Allergy/AdvReac Type Severity Reaction Status Date / Time No Known Allergies Allergy Verified 05/10/24 05:07 Review of Systems 2 Review of Systems: All systems reviewed & are unremarkable except as noted in HPI and below [facility] Past Medical History Medical History Anxiety Surgical History Surgical History H/O shoulder surgery (~2019) torn rotator cuff repair Family History Family History Grandparent Cerebrovascular accident maternal grandfather Acute myocardial infarction paternal grandfather / maternal grandfather Diabetes mellitus maternal grandmother Mother Hypertension Social History Social History (Updated 05/09/24 @ 14:58 by Andrea Cortez MA) Smoking status: Never smoker Second hand tobacco smoke exposure: No Alcohol intake: never Substance use: never Substance use type: does not use Do You Feel Safe in your Home?: Yes Lack of Transportation: No Lack of Food: Never True Current Housing: I Have Housing Concerned About Future Housing: No Difficulty Paying Gas/Electric Bills: No Difficulty Paying for Meds: No Currently Unemployed: No Education: High School Diploma/GED Difficulty w/ Childcare or Family Care: No Living arrangements: with family Additional living arrangements comments: Occupation/Education: occupation 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 HEAD: normocephalic, atraumatic. EYES: PERRLA/EOMI, conjunctivae clear. NOSE: Normal no drainage EARS:TMS clear with good light reflex. THROAT: Pharynx clear, no exudate. NECK: Supple. No adenopathy, no masses. RESPIRATORY: Airway patent, respirations nonlabored. Clear to auscultation bilaterally, no rales, rhonchi, wheezing. CARDIOVASCULAR: Regular rate and rhythm without murmurs rubs or gallops. ABDOMINAL: Soft, nontender, nondistended, normal bowel sounds MUSCULOSKELETAL: Moves all extremities. Strength/ROM intact, No edema, No calf tenderness. NEURO: Alert. Cranial nerves II through XII intact. Good gait. Good coordination SKIN: Warm, dry. Normal Color Course Vital Signs Vital signs: Vital Signs Temperature 97.8 F 05/18/24 12:08 Pulse Rate 79 05/18/24 12:08 Respiratory Rate 16 05/18/24 12:08 Blood Pressure 129/83 05/18/24 12:08 Pulse Oximetry 100 05/18/24 12:08 Temperature 97.9 F 05/18/24 16:17 Pulse Rate 82 05/18/24 16:17 Respiratory Rate 18 05/18/24 16:17 Blood Pressure 112/78 05/18/24 16:17 Pulse Oximetry 100 05/18/24 16:17 Medical Decision Making [facility] Narrative Medical decision making narrative: 21-year-old female presents emergency department for evaluation for episode lightheadedness. Upon arrival emergency department patient states he does feel improved. Patient was treated with a L of IV fluid and had negative orthostatic vital signs and felt asymptomatic. Patient is currently afebrile but does have a leukocytosis of 11.7 which is normal during and hemoglobin 11.3. INR of 0.9 with no acute abnormalities on the patient's CMP patient's urine was negative for infection patient was negative for influenza RSV and for COVID. Patient was not tachycardic and had no hypoxia. Patient and family were updated on the results of the workup they are comfortable plan for discharge and close follow-up with OB Gyne. Differential Diagnosis Differential Diagnosis: COVID, RSV, influenza, dehydration, PE, pneumonia, orthostatic hypotension Vital Signs Vital Signs: Vital Signs Temperature 97.8 F 05/18/24 12:08 Pulse Rate 79 05/18/24 12:08 Respiratory Rate 16 05/18/24 12:08 Blood Pressure 129/83 05/18/24 12:08 Pulse Oximetry 100 05/18/24 12:08 Temperature 97.9 F 05/18/24 16:17 Pulse Rate 82 05/18/24 16:17 Respiratory Rate 18 05/18/24 16:17 Blood Pressure 112/78 05/18/24 16:17 Pulse Oximetry 100 05/18/24 16:17 Lab Data Lab results reviewed: Yes I reviewed the patient's lab results. 05/18/24 12:34 05/18/24 12:34 Labs: Lab Results 05/18/24 Range/Units 12:34 WBC 11.7 H (4.5-10.0) K/mm3 RBC 3.42 L (4.2-5.4) M/mm3 Hgb 11.3 L (12.0-15.0) g/dL Hct 32.5 L (37.0-47.0) % MCV 95.0 (80-100) fl MCH 33.0 (26-34) pg MCHC 34.8 (32-36) g/dl RDW 13.3 (11.5-14.5) % Plt Count 248 (150-375) k/mm3 MPV 10.2 (7.4-10.4) fl Immature Gran % (Auto) 0.6 H (0-0.5) % Neut % (Auto) 76.5 H (45.5-73.1) % Lymph % (Auto) 16.3 L (18.3-44.2) % Quay % (Auto) 4.9 (2.6-8.5) % Eos % (Auto) 1.3 (0-4.4) % Baso % (Auto) 0.4 (0.2-1.2) % Lymph # (Auto) 1.91 (0.9-3.2) K/mm3 Quay # (Auto) 0.6 (0.1-0.6) K/mm3 Eos # (Auto) 0.2 (0-0.3) K/mm3 Baso # (Auto) 0.1 (0.0-0.1) K/mm3 Abs Immat Gran (auto) 0.07 H (0.00-0.031) K/mm3 Absolute Neuts (auto) 9.0 H (1.3-6.7) K/mm3 Absolute Nucleated RBC 0.000 (0.0-0.012) K/mm3 Nucleated RBC % 0.0 (0.0-0.2) % PT 12.6 (11.1-14.7) Seconds INR 0.9 APTT 24.9 (22.3-36.8) Seconds Sodium 136 L (137-145) mmol/L Potassium 3.4 (3.4-5.0) mmol/L Chloride 104 (98-107) mmol/L Carbon Dioxide 22 (22-30) mmol/L Anion Gap 10 (4-12) mmol/L BUN 7 (7-17) mg/dL Creatinine 0.44 L (0.7-1.0) mg/dL Estim Creat Clear Calc 124 ml/min Estimated GFR > 60 (59 - ) Glucose 97 (65-110) mg/dL Calcium 9.0 (8.4-10.2) mg/dL Magnesium 1.9 (1.6-2.3) mg/dL Total Bilirubin 0.3 (0.2-1.3) mg/dL AST 21 (14-36) U/L ALT 17 (6-35) U/L Alkaline Phosphatase 70 (38-126) U/L Total Protein 7.0 (6.3-8.2) g/dL Albumin 4.3 (3.5-5.1) g/dL TSH (Reflex) 1.120 (0.465-4.68) uIU/mL Urine Color Yellow (Yellow) Urine Appearance Clear (Clear) Urine pH 7.0 (5.0-9.0) Ur Specific [place] 1.004 (1.001-1.035) Urine Protein Negative (Negative) mg/dL Urine Glucose (UA) Negative (Negative) mg/dL Urine Ketones Negative (Negative) mg/dL Ur Blood (Man) Negative (Negative) Urine Nitrate Negative (Negative) Urine Bilirubin Negative (Negative) Urine Urobilinogen 0.2 (<2.0) mg/dL Leukocyte Esterase Rfl Negative (Negative) VIVIANA/UL Influenza A (RT-PCR) Negative (Negative) Influenza B (RT-PCR) Negative (Negative) RSV (RT-PCR) Negative (Negative) SARS-CoV-2 RNA (RT-PCR) Negative (Negative) Discharge Plan Discharge Clinical Impression: Episodic lightheadedness Patient Disposition: Home, Self-Care Condition: Stable Instructions: Antibiotic Form, Dehydration (DC), Lightheadedness (ED) Additional Instructions: Continue to drink plenty of fluids. Have close follow-up with your OB Gyne. If you have any worsening symptoms please call or return to the emergency department. Patient Language: Korean Prescriptions: No Action vit-iron fum-folic ac 65 mg iron- 1 mg tablet 1 tablet PO DAILY Follow-up/Referrals: Claus Orlando MD [Primary Care Provider] -
[2024-05-18] MEDS: SODIUM CHLORIDE 0.9% IV 1,000 ML 999 ML IV CONT (14:07)
== END 2024-05-18 16:18 | disposition home or self-care (01) ==
PROVIDERS: Emergency Provider Emergency Medicine; PCP Family Medicine
DX: O26.892 Other specified pregnancy related conditions, second trimester (principal); R42 Dizziness and giddiness; Z3A.23 23 weeks gestation of pregnancy
CPT/HCPCS: 36415; 80053; 81003; 83735; 84443; 85025; 85610; 85730; 87637; 93005; 96360; 99284; J7030

== ENCOUNTER 2024-06-13 10:24 | Outpatient (CLI) | payer BC, SELFPAY ==
[2024-06-13 11:49] LABS: Basophils Absolute Auto 0.1 K/mm3 (0.0-0.1); Basophils Percent Auto 0.7 % (0.2-1.2); Eosinophils Absolute Auto 0.1 K/mm3 (0-0.3); Hematocrit 33.8 % (37.0-47.0); Hemoglobin 11.5 g/dL (12.0-15.0); Immature Granulocyte Percent A 0.9 % (0-0.5); Lymphocytes Absolute Auto 2.08 K/mm3 (0.9-3.2); Lymphocytes Percent Auto 19.5 % (18.3-44.2); Mean Corpuscular Hemoglobin 32.9 pg (26-34); Mean Corpuscular Volume 96.6 fl (80-100); Monocytes Absolute Auto 0.5 K/mm3 (0.1-0.6); Monocytes Percent Auto 4.7 % (2.6-8.5); Neutrophils Absolute Auto 7.8 K/mm3 (1.3-6.7); Neutrophils Percent Auto 73.2 % (45.5-73.1); Platelet Count Result 244 k/mm3 (150-375); White Blood Count 10.7 K/mm3 (4.5-10.0)
[2024-06-13 12:02] LABS: Glucose 1 Hour PP 50gm Dose 135 mg/dL
--- OUTSIDE RECORDS SUMMARY | 2024-06-13 12:03 | XMS_ITS | Encounter Summary ---
Demographics Address [address] [place] [address] [place] [address] Mobile Phone Home Phone Email Address Preferred Language Bermudian Marital Status Single Denominational Affiliation Unknown Race White Ethnic Group Not or Lati no Author Organization [facility] Address [address] [place] [address] Phone Care Team Providers Care Stove Refinisher Name Role Phone Tania Berry DO Primary Care Provider [phone] Referring, Unknown MD Primary Care Provider Unav ailable Encounter Details Date Type Department Care Team (Late st Contact Info) Description 03/11/2022 Orders Only [facility] [address] [place] [address] Scanning, Provider Social History Tobacco [...] on file Legal Sex Female 7:32 PM MATERIAL CONTROL MANAGER Gender Identity Not on file Sexual Orientation [...] on filedocumented in this encounter Care Teams Stove Refinisher Relationship Specialty Start Date End Date Tania Berry DO PCP - General Family Medicine 09/24/17 11/26/23 Referring, Unknown, PCP - General Pediatrics 03/25/24 documented as of this encounter
--- OUTSIDE RECORDS SUMMARY | 2024-06-13 12:03 | XMS_ITS | Referral Summary ---
Author Organization [facility] [address] Address [address] [facility] [place] [address] Phone Care Team Providers Care Banking Assistant Name Role Phone Referring, Unknown MD Primary [...] (10/20/2019): Added automatically from request for surgery [id number] Assessment & Plan (12/29/2019 3:34 PM QUALITY CONTROL AUDITOR): Chronic idiopathic constipation secondary to irritable bowel syndrome. I will increase Linzess to 290 micro g daily. Patient was also advised to use and drink juice every day with MiraLax. Follow-up in 3 months Blood in stool 10/20/2019 Overview (10/20/2019): Added automatically from request for surgery [id number] BMI 21.0-21.9, adult 09/19/2019 Generalized anxiety disorder [...] 09/25/2017 Assessment & Plan (01/01/2018 3:05 PM QUALITY CONTROL AUDITOR): Cont Aleve, use as directed. Referred to [...] (11/03/2018): Added automatically from request for surgery [id number] Arthritis of right acromioclavicular joint 11/03/2018 09/19/2019 Overview (11/03/2018): Added automatically from request for surgery [id number] Biceps tendinitis on right 11/03/2018 0 09/19/2019 Overview (11/03/2018): Added automatically from request for surgery [id number] Nontraumatic incomplete tear of right rotator cuff [...] on file Legal Sex Female 7:32 PM QUALITY CONTROL AUDITOR Gender Identity Not on file Sexual Orientation Not on file Occupation Industry Job Start Date Job End Date Not on file Not on file Not on file Not on file Last Filed Vital Signs Vital Sign Reading Time Taken Comments Blood Pressure 120/82 03/27/2023 3:18 PM QUALITY CONTROL AUDITOR Pulse 91 12/29/2019 3:23 PM QUALITY CONTROL AUDITOR Temperature 36.6 C (97.8 F) 12/29/2019 3:23 PM QUALITY CONTROL AUDITOR Respiratory Rate 16 12/29/2019 3:23 PM QUALITY CONTROL AUDITOR Oxygen Saturation 99% 12/29/2019 3:23 PM QUALITY CONTROL AUDITOR Inhaled Oxygen Concentration - - Weight 52.6 kg (116 lb) 03/27/2023 3:18 PM QUALITY CONTROL AUDITOR Height 157.5 cm (5' 2 ) 03/27/2023 3:18 PM QUALITY CONTROL AUDITOR Body Mass Index 21.22 03/27/2023 3:18 PM QUALITY CONTROL AUDITOR Plan of Treatment Not on file Medical Devices Implanted Type Area Cardiothoracic Physiotherapist Device Identifier Shelf Expiration Date Model / Serial / Lot [employer] Ar-2923bc Pushlock 2.9mm 12.5mm Cannulated Eyelet Handle Merchandise Distributor Short - [id number] Implanted:Qty: 1 on 11/25/2018 by Scott Mayo MD at [facility] Right: Shoulder [employer] 08/15/2020 AR-2923BC / / [id number] Procedures Procedure Name Priority Date/Time Associated Diagnosis Comments PAP WITH REFLEX TO HIGH RISK HPV Routine 03/07/2022 9:10 AM QUALITY CONTROL AUDITOR Screening for malignant neoplasm of the cervix from Last 3 Months or Most Recently Relevant to Health Maintenance Results * Pap with reflex to High Risk HPV (03/07/2022 9:10 AM QUALITY CONTROL AUDITOR) Thin prep (Pap test) 03/07/2022 9:10 AM QUALITY CONTROL AUDITOR 03/07/2022 9:10 AM QUALITY CONTROL AUDITOR Narrative PATHOLOGY CH - 03/11/2022 1:09 PM QUALITY CONTROL AUDITOR [facility] Department of Pathology [address] [place] [address] Final Report Note to Patients: This [...] the details. Patient Name: LYUDMILA CODY Address: [address] [place] [address] Gender: F : 1995 (Age: 26) Service: Location: N : [id number] [facility] #: [id number] Patient Type: SPECIMEN Taken: 03/07/2022 Received: 03/07/2022 Accessioned:: 03/10/2022 Reported: 03/11/2022 Physician(s): MD Sandra Perez MD Diagnosis: Source of Specimen: Imaged Thinprep Pap Test w/ Reflex HPV - Staple Fiber Washer Cytologic Material Specimen Adequacy: - Satisfactory for evaluation; endocervical/transformation zone component present General Category: - Negative for intraepithelial lesion or malignancy KEITH Pathak(ASCP) Report Electronically Reviewed and Signed Out By KEITH Pathak(ASCP) 03/11/2022 13:09:42Specimen(s) Received: A: Imaged Thinprep Pap Test w/ Reflex HPV - Staple Fiber Washer Cytologic Material Clinical History: Last Menstrual Period: [...] determined by the Surgical Pathology Department at [facility] as part of an ongoing corporate quality manager program and in compliance with federally mandated [...] characteristics determined by the Surgical Pathology Department [facility]. It has not been cleared or approved by the U. S. Food and Drug Administration. Sandra Vincent MD LAB CYTOLOGY ORDERABL ES Final Result PATHOLOGY [address] [place] [address] from Last 3 Months or Most Recently Relevant to Health Maintenance Insurance [place] [address] [employer] OPEN ACCESS Advance Directives For more information, please contact: [phone] * Full Code (Latest Code Status on File) Date Activated Date Inactivated Comments 11/28/2019 1:04 PM 11/28/2019 7:27 PM Care Teams Banking Assistant Relationship Specialty Start Date End Date Referring, Unknown, PCP - General Pediatrics 03/25/24
--- OUTSIDE RECORDS SUMMARY | 2024-06-13 12:03 | XMS_ITS | Clinical Summary ---
Author Organization [facility] [address] Address [address] [place] [address] Phone Care Team Providers Care Deckhand Oyster Dredge Name Role Phone Referring, Unknown MD Primary [...] (10/20/2019): Added automatically from request for surgery [id number] Assessment & Plan (12/29/2019 3:34 PM VENEER LAYER): Chronic idiopathic constipation secondary to irritable bowel syndrome. I will increase Linzess to 290 micro g daily. Patient was also advised to use and drink juice every day with MiraLax. Follow-up in 3 months Blood in stool 10/20/2019 Overview (10/20/2019): Added automatically from request for surgery [id number] BMI 21.0-21.9, adult 09/19/2019 Generalized anxiety disorder [...] 09/25/2017 Assessment & Plan (01/01/2018 3:05 PM VENEER LAYER): Cont Aleve, use as directed. Referred to [...] (11/03/2018): Added automatically from request for surgery [id number] Arthritis of right acromioclavicular joint 11/03/2018 09/19/2019 Overview (11/03/2018): Added automatically from request for surgery [id number] Biceps tendinitis on right 11/03/2018 0 09/19/2019 Overview (11/03/2018): Added automatically from request for surgery [id number] Nontraumatic incomplete tear of right rotator cuff [...] on file Legal Sex Female 7:32 PM VENEER LAYER Gender Identity Not on file Sexual Orientation [...] Comments Blood Pressure 120/82 03/27/2023 3:18 PM VENEER LAYER Pulse 91 12/29/2019 3:23 PM VENEER LAYER Temperature 36.6 C (97.8 F) 12/29/2019 3:23 PM VENEER LAYER Respiratory Rate 16 12/29/2019 3:23 PM VENEER LAYER Oxygen Saturation 99% 12/29/2019 3:23 PM VENEER LAYER Inhaled Oxygen Concentration - - Weight 52.6 kg (116 lb) 03/27/2023 3:18 PM VENEER LAYER Height 157.5 cm (5' 2 ) 03/27/2023 3:18 PM VENEER LAYER Body Mass Index 21.22 03/27/2023 3:18 PM VENEER LAYER Plan of Treatment Health Maintenance Due Date [...] this topic Medical Devices Implanted Type Area Scientific Affairs Manager Device Identifier Shelf Expiration Date Model / Serial / Lot [employer] Ar-2923bc Pushlock 2.9mm 12.5mm Cannulated Eyelet Handle Overlock Collar Setter Short - [id number] Implanted:Qty: 1 on 11/25/2018 by Scott Mayo MD at [facility] Right: Shoulder [employer] 08/15/2020 AR-2923BC / / [id number] Procedures Procedure Name Priority Date/Time Associated Diagnosis Comments PAP WITH REFLEX TO HIGH RISK HPV Routine 03/07/2022 9:10 AM VENEER LAYER Screening for malignant neoplasm of the cervix from Last 3 Months or Most Recently Relevant to Health Maintenance Results * Pap with reflex to High Risk HPV (03/07/2022 9:10 AM VENEER LAYER) Thin prep (Pap test) 03/07/2022 9:10 AM VENEER LAYER 03/07/2022 9:10 AM VENEER LAYER Narrative PATHOLOGY CH - 03/11/2022 1:09 PM VENEER LAYER [facility] Department of Pathology [address] [place], [place] [id number] Final Report Note to Patients: This report [...] the details. Patient Name: LYUDMILA CODY Address: [address] [place] [address] Gender: F : 1995 (Age: 26) Service: Location: N : [id number] [facility] #: [id number] Patient Type: SPECIMEN Taken: 03/07/2022 Received: 03/07/2022 Accessioned:: 03/10/2022 Reported: 03/11/2022 Physician(s): MD Sandra Perez MD Diagnosis: Source of Specimen: Imaged Thinprep Pap Test w/ Reflex HPV - Fire Alarm Dispatcher Cytologic Material Specimen Adequacy: - Satisfactory for evaluation; endocervical/transformation zone component present General Category: - Negative for intraepithelial lesion or malignancy KEITH Pathak(ASCP) Report Electronically Reviewed and Signed Out By KEITH Pathak(ASCP) 03/11/2022 13:09:42Specimen(s) Received: A: Imaged Thinprep Pap Test w/ Reflex HPV - Fire Alarm Dispatcher Cytologic Material Clinical History: Last Menstrual Period: [...] determined by the Surgical Pathology Department at [facility] as part of an ongoing water quality control engineer program and in compliance with federally [...] characteristics determined by the Surgical Pathology Department [facility]. It has not been cleared or approved by the U. S. Food and Drug Administration. Sandra Vincent MD LAB CYTOLOGY ORDERABL ES Final Result Performing Organization Address City/State/ZIP [place] Phone Number PATHOLOGY [address] [place] [address] from Last 3 Months or Most Recently Relevant to Health Maintenance Insurance [employer] [facility] [employer] OPEN ACCESS HE[employer] OPEN ACCESS Advance Directives For more information, please contact: [phone] * Full Code (Latest Code Status on File) Date Activated Date Inactivated Comments 11/28/2019 1:04 PM 11/28/2019 7:27 PM Care Teams Deckhand Oyster Dredge Relationship Specialty Start Date End Date Referring, Unknown, PCP - General Pediatrics 03/25/24
[2024-06-13 12:35] LABS: Syphilis IgG/IgM Antibody Negative (Negative)
[2024-06-13 12:41] LABS: HIV 1/2 Ab P24 Ag Result Negative (Negative)
== END 2024-06-13 10:25 | disposition home or self-care (01) ==
PROVIDERS: PCP Family Medicine; Visit Provider Obstetrics & Gynecology
DX: Z34.90 Encounter for supervision of normal pregnancy, unspecified, unspecified trimester (principal); Z3A.00 Weeks of gestation of pregnancy not specified
CPT/HCPCS: 36415; 82947; 85025; 85461; 86593; 86703; 86850; 86900; 86901; G0432

== ENCOUNTER 2024-06-17 07:03 | Outpatient (CLI) | payer BC, SELFPAY ==
--- OUTSIDE RECORDS SUMMARY | 2024-06-17 07:07 | XMS_ITS | Referral Summary ---
Author Organization [facility] [address] Address [address] [place] [address] Phone Care Team Providers Care Fiber Technologist Name Role Phone Referring, Unknown MD Primary [...] (10/20/2019): Added automatically from request for surgery [id number] Assessment & Plan (12/29/2019 3:34 PM ED MANAGER): Chronic idiopathic constipation secondary to irritable bowel syndrome. I will increase Linzess to 290 micro g daily. Patient was also advised to use and drink juice every day with MiraLax. Follow-up in 3 months Blood in stool 10/20/2019 Overview (10/20/2019): Added automatically from request for surgery [id number] BMI 21.0-21.9, adult 09/19/2019 Generalized anxiety disorder [...] 09/25/2017 Assessment & Plan (01/01/2018 3:05 PM ED MANAGER): Cont Aleve, use as directed. Referred to [...] (11/03/2018): Added automatically from request for surgery [id number] Arthritis of right acromioclavicular joint 11/03/2018 09/19/2019 Overview (11/03/2018): Added automatically from request for surgery [id number] Biceps tendinitis on right 11/03/2018 0 09/19/2019 Overview (11/03/2018): Added automatically from request for surgery [id number] Nontraumatic incomplete tear of right rotator cuff [...] on file Legal Sex Female 7:32 PM ED MANAGER Gender Identity Not on file Sexual Orientation Not on file Occupation Industry Job Start Date Job End Date Not on file Not on file Not on file Not on file Last Filed Vital Signs Vital Sign Reading Time Taken Comments Blood Pressure 120/82 03/27/2023 3:18 PM ED MANAGER Pulse 91 12/29/2019 3:23 PM ED MANAGER Temperature 36.6 C (97.8 F) 12/29/2019 3:23 PM ED MANAGER Respiratory Rate 16 12/29/2019 3:23 PM ED MANAGER Oxygen Saturation 99% 12/29/2019 3:23 PM ED MANAGER Inhaled Oxygen Concentration - - Weight 52.6 kg (116 lb) 03/27/2023 3:18 PM ED MANAGER Height 157.5 cm (5' 2 ) 03/27/2023 3:18 PM ED MANAGER Body Mass Index 21.22 03/27/2023 3:18 PM ED MANAGER Plan of Treatment Not on file Medical Devices Implanted Type Area Therapist Physical Device Identifier Shelf Expiration Date Model / Serial / Lot [employer] Ar-2923bc Pushlock 2.9mm 12.5mm Cannulated Eyelet Handle Licensed Home Inspector Short - [id number] Implanted:Qty: 1 on 11/25/2018 by Scott Mayo MD at [facility] Right: Shoulder [employer] 08/15/2020 AR-2923BC / / [id number] Procedures Procedure Name Priority Date/Time Associated Diagnosis Comments PAP WITH REFLEX TO HIGH RISK HPV Routine 03/07/2022 9:10 AM ED MANAGER Screening for malignant neoplasm of the cervix from Last 3 Months or Most Recently Relevant to Health Maintenance Results * Pap with reflex to High Risk HPV (03/07/2022 9:10 AM ED MANAGER) Thin prep (Pap test) 03/07/2022 9:10 AM ED MANAGER 03/07/2022 9:10 AM ED MANAGER Narrative PATHOLOGY CH - 03/11/2022 1:09 PM ED MANAGER [facility] Department of Pathology [address] [place] [address] Final Report Note to Patients: This [...] the details. Patient Name: LYUDMILA CODY Address: [address] [place] [address] Gender: F : 1995 (Age: 26) Service: Location: N : [id number] [facility] #: [id number] Patient Type: SPECIMEN Taken: 03/07/2022 Received: 03/07/2022 Accessioned:: 03/10/2022 Reported: 03/11/2022 Physician(s): MD Sandra Perez MD Diagnosis: Source of Specimen: Imaged Thinprep Pap Test w/ Reflex HPV - Science Education Professor Cytologic Material Specimen Adequacy: - Satisfactory for evaluation; endocervical/transformation zone component present General Category: - Negative for intraepithelial lesion or malignancy KEITH Pathak(ASCP) Report Electronically Reviewed and Signed Out By KEITH Pathak(ASCP) 03/11/2022 13:09:42Specimen(s) Received: A: Imaged Thinprep Pap Test w/ Reflex HPV - Science Education Professor Cytologic Material Clinical History: Last Menstrual Period: [...] determined by the Surgical Pathology Department at [facility] as part of an ongoing housing quality standard inspector program and in compliance with federally mandated [...] characteristics determined by the Surgical Pathology Department [facility]. It has not been cleared or approved by the U. S. Food and Drug Administration. Sandra Vincent MD LAB CYTOLOGY ORDERABL ES Final Result PATHOLOGY [address] [place] [address] from Last 3 Months or Most Recently Relevant to Health Maintenance Insurance [employer] [place] [address] [employer] OPEN ACCESS Advance Directives For more information, please contact: [phone] * Full Code (Latest Code Status on File) Date Activated Date Inactivated Comments 11/28/2019 1:04 PM 11/28/2019 7:27 PM Care Teams Fiber Technologist Relationship Specialty Start Date End Date Referring, Unknown, PCP - General Pediatrics 03/25/24
--- OUTSIDE RECORDS SUMMARY | 2024-06-17 07:07 | XMS_ITS | Clinical Summary ---
Author Organization CC [facility] [address] Address [address] [place] [address] Phone Care Team Providers Care Eyelet Cutter Name Role Phone Referring, Unknown MD Primary [...] (10/20/2019): Added automatically from request for surgery [id number] Assessment & Plan (12/29/2019 3:34 PM STAFFING MANAGER): Chronic idiopathic constipation secondary to irritable bowel syndrome. I will increase Linzess to 290 micro g daily. Patient was also advised to use and drink juice every day with MiraLax. Follow-up in 3 months Blood in stool 10/20/2019 Overview (10/20/2019): Added automatically from request for surgery [id number] BMI 21.0-21.9, adult 09/19/2019 Generalized anxiety disorder [...] 09/25/2017 Assessment & Plan (01/01/2018 3:05 PM STAFFING MANAGER): Cont Aleve, use as directed. Referred [...] (11/03/2018): Added automatically from request for surgery [id number] Arthritis of right acromioclavicular joint 11/03/2018 09/19/2019 Overview (11/03/2018): Added automatically from request for surgery [id number] Biceps tendinitis on right 11/03/2018 0 09/19/2019 Overview (11/03/2018): Added automatically from request for surgery [id number] Nontraumatic incomplete tear of right rotator cuff [...] on file Legal Sex Female 7:32 PM STAFFING MANAGER Gender Identity Not on file Sexual [...] Comments Blood Pressure 120/82 03/27/2023 3:18 PM STAFFING MANAGER Pulse 91 12/29/2019 3:23 PM STAFFING MANAGER Temperature 36.6 C (97.8 F) 12/29/2019 3:23 PM STAFFING MANAGER Respiratory Rate 16 12/29/2019 3:23 PM STAFFING MANAGER Oxygen Saturation 99% 12/29/2019 3:23 PM STAFFING MANAGER Inhaled Oxygen Concentration - - Weight 52.6 kg (116 lb) 03/27/2023 3:18 PM STAFFING MANAGER Height 157.5 cm (5' 2 ) 03/27/2023 3:18 PM STAFFING MANAGER Body Mass Index 21.22 03/27/2023 3:18 PM STAFFING MANAGER Plan of Treatment Health Maintenance Due Date [...] this topic Medical Devices Implanted Type Area Chief Lending Officer Device Identifier Shelf Expiration Date Model / Serial / Lot [employer] Ar-2923bc Pushlock 2.9mm 12.5mm Cannulated Eyelet Handle Supervisor Correspondence Section Short - [id number] Implanted:Qty: 1 on 11/25/2018 by Scott Mayo MD at [facility] Right: Shoulder [employer] 08/15/2020 AR-2923BC / / [id number] Procedures Procedure Name Priority Date/Time Associated Diagnosis Comments PAP WITH REFLEX TO HIGH RISK HPV Routine 03/07/2022 9:10 AM STAFFING MANAGER Screening for malignant neoplasm of the cervix from Last 3 Months or Most Recently Relevant to Health Maintenance Results * Pap with reflex to High Risk HPV (03/07/2022 9:10 AM STAFFING MANAGER) Thin prep (Pap test) 03/07/2022 9:10 AM STAFFING MANAGER 03/07/2022 9:10 AM STAFFING MANAGER Narrative PATHOLOGY CH - 03/11/2022 1:09 PM STAFFING MANAGER [facility] Department of Pathology [address] [place], [place] [id number] Final Report Note to Patients: This report [...] the details. Patient Name: LYUDMILA CODY Address: [address] [place] [address] Gender: F : 1995 (Age: 26) Service: Location: N : [id number] [facility] #: [id number] Patient Type: SPECIMEN Taken: 03/07/2022 Received: 03/07/2022 Accessioned:: 03/10/2022 Reported: 03/11/2022 Physician(s): MD Sandra Perez MD Diagnosis: Source of Specimen: Imaged Thinprep Pap Test w/ Reflex HPV - Customer Service Advisor Cytologic Material Specimen Adequacy: - Satisfactory for evaluation; endocervical/transformation zone component present General Category: - Negative for intraepithelial lesion or malignancy KEITH Pathak(ASCP) Report Electronically Reviewed and Signed Out By KEITH Pathak(ASCP) 03/11/2022 13:09:42Specimen(s) Received: A: Imaged Thinprep Pap Test w/ Reflex HPV - Customer Service Advisor Cytologic Material Clinical History: Last Menstrual Period: [...] determined by the Surgical Pathology Department at [facility] as part of an ongoing aircraft quality control inspector program and in compliance with federally [...] characteristics determined by the Surgical Pathology Department [facility]. It has not been cleared or approved by the U. S. Food and Drug Administration. Sandra Vincent MD LAB CYTOLOGY ORDERABL ES Final Result Performing Organization Address City/State/ZIP Co in Phone Number PATHOLOGY [address] [place] [address] from Last 3 Months or Most Recently Relevant to Health Maintenance Insurance [employer] [facility] HEALTHLINK OPEN ACCESS HEALTHLINK OPEN ACCESS Advance Directives For more information, please contact: [phone] * Full Code (Latest Code Status on File) Date Activated Date Inactivated Comments 11/28/2019 1:04 PM 11/28/2019 7:27 PM Care Teams Eyelet Cutter Relationship Specialty Start Date End Date Referring, Unknown, PCP - General Pediatrics 03/25/24
--- OUTSIDE RECORDS SUMMARY | 2024-06-17 07:07 | XMS_ITS | Encounter Summary ---
Demographics Address [address] [place] [address] [place] [address] Mobile Phone Home Phone Email Address Preferred Language Amharic Marital Status Single Confucianism Affiliation Unknown Race White Ethnic Group Not or Lati no Author Organization [facility] Address [address] [place] [address] Phone Care Team Providers Care Carton And Can Supply Supervisor Name Role Phone Tania Berry DO Primary Care Provider +1- [phone] Referring, Unknown MD Primary Care Provider Unav ailable Encounter Details Date Type Department Care Team (Late st Contact Info) Description 03/11/2022 Orders Only [facility] [address] [place] [address] Scanning, Provider Social History Tobacco [...] on file Legal Sex Female 7:32 PM PLANT MAINTENANCE ENGINEER Gender Identity Not on file Sexual Orientation [...] on filedocumented in this encounter Care Teams Carton And Can Supply Supervisor Relationship Specialty Start Date End Date Tania Berry DO PCP - General Family Medicine 09/24/17 11/26/23 Referring, Unknown, PCP - General Pediatrics 03/25/24 documented as of this encounter
[2024-06-17 07:53] LABS: Glucose Fasting Gestational 82 mg/dL (>/=95)
[2024-06-17 10:17] LABS: Glucose 1 Hour Gest 128 mg/dL (>/=180)
[2024-06-17 11:35] LABS: Glucose 3 Hour Gest 77 mg/dL (>/=140)
[2024-06-17 11:36] LABS: Glucose 2 Hour Gest 80 mg/dL (>/= 155)
== END 2024-06-17 07:04 | disposition home or self-care (01) ==
LOC: ANHLAB 07:05
PROVIDERS: PCP Family Medicine; Visit Provider Obstetrics & Gynecology
DX: R73.09 Other abnormal glucose (principal)
CPT/HCPCS: 36415; 82951; 82952

== ENCOUNTER 2024-06-21 10:15 | Outpatient (RCR) | payer BC, SELFPAY ==
--- OUTSIDE RECORDS SUMMARY | 2024-06-20 17:40 | XMS_ITS | Encounter Summary ---
Demographics Address [address] [place] [address] [place] [address] Mobile Phone Home Phone Email Address Preferred Language Portuguese Marital Status Single Anabaptism Affiliation Unknown Race White Ethnic Group Not or Lati no Author Organization [facility] Address [address] [employer] [address] Phone Care Team Providers Care Sql Programmer Name Role Phone Tania Berry DO Primary Care Provider +1- [phone] Referring, Unknown MD Primary Care Provider Unav ailable Encounter Details Date Type Department Care Team (Late st Contact Info) Description 03/11/2022 Orders Only [facility] [address] [place] [address] Scanning, Provider Social History Tobacco [...] on file Legal Sex Female 7:32 PM A P MECHANIC Gender Identity Not on file Sexual Orientation [...] on filedocumented in this encounter Care Teams Sql Programmer Relationship Specialty Start Date End Date Tania Berry DO PCP - General Family Medicine 09/24/17 11/26/23 Referring, Unknown, PCP - General Pediatrics 03/25/24 documented as of this encounter
--- OUTSIDE RECORDS SUMMARY | 2024-06-20 17:40 | XMS_ITS | Clinical Summary ---
Author Organization [facility] [address] Address [address] [place] [address] Phone Care Team Providers Care Education Coordinator Name Role Phone Referring, Unknown MD Primary [...] (10/20/2019): Added automatically from request for surgery [id number] Assessment & Plan (12/29/2019 3:34 PM TELECOMMUNICATIONS SWITCH TECHNICIAN): Chronic idiopathic constipation secondary to irritable bowel syndrome. I will increase Linzess to 290 micro g daily. Patient was also advised to use and drink juice every day with MiraLax. Follow-up in 3 months Blood in stool 10/20/2019 Overview (10/20/2019): Added automatically from request for surgery [id number] BMI 21.0-21.9, adult 09/19/2019 Generalized anxiety disorder [...] 09/25/2017 Assessment & Plan (01/01/2018 3:05 PM TELECOMMUNICATIONS SWITCH TECHNICIAN): Cont Aleve, use as directed. Referred to [...] (11/03/2018): Added automatically from request for surgery [id number] Arthritis of right acromioclavicular joint 11/03/2018 09/19/2019 Overview (11/03/2018): Added automatically from request for surgery [id number] Biceps tendinitis on right 11/03/2018 0 09/19/2019 Overview (11/03/2018): Added automatically from request for surgery [id number] Nontraumatic incomplete tear of right rotator cuff [...] on file Legal Sex Female 7:32 PM TELECOMMUNICATIONS SWITCH TECHNICIAN Gender Identity Not on file Sexual Orientation [...] Comments Blood Pressure 120/82 03/27/2023 3:18 PM TELECOMMUNICATIONS SWITCH TECHNICIAN Pulse 91 12/29/2019 3:23 PM TELECOMMUNICATIONS SWITCH TECHNICIAN Temperature 36.6 C (97.8 F) 12/29/2019 3:23 PM TELECOMMUNICATIONS SWITCH TECHNICIAN Respiratory Rate 16 12/29/2019 3:23 PM TELECOMMUNICATIONS SWITCH TECHNICIAN Oxygen Saturation 99% 12/29/2019 3:23 PM TELECOMMUNICATIONS SWITCH TECHNICIAN Inhaled Oxygen Concentration - - Weight 52.6 kg (116 lb) 03/27/2023 3:18 PM TELECOMMUNICATIONS SWITCH TECHNICIAN Height 157.5 cm (5' 2 ) 03/27/2023 3:18 PM TELECOMMUNICATIONS SWITCH TECHNICIAN Body Mass Index 21.22 03/27/2023 3:18 PM TELECOMMUNICATIONS SWITCH TECHNICIAN Plan of Treatment Health Maintenance Due Date [...] this topic Medical Devices Implanted Type Area Tubing Tester Device Identifier Shelf Expiration Date Model / Serial / Lot [employer] Ar-2923bc Pushlock 2.9mm 12.5mm Cannulated Eyelet Handle Electronic Funds Transfer Coordinator Short - [id number] Implanted:Qty: 1 on 11/25/2018 by Scott Mayo MD at [facility] Right: Shoulder [employer] 08/15/2020 AR-2923BC / / [id number] Procedures Procedure Name Priority Date/Time Associated Diagnosis Comments PAP WITH REFLEX TO HIGH RISK HPV Routine 03/07/2022 9:10 AM TELECOMMUNICATIONS SWITCH TECHNICIAN Screening for malignant neoplasm of the cervix from Last 3 Months or Most Recently Relevant to Health Maintenance Results * Pap with reflex to High Risk HPV (03/07/2022 9:10 AM TELECOMMUNICATIONS SWITCH TECHNICIAN) Thin prep (Pap test) 03/07/2022 9:10 AM TELECOMMUNICATIONS SWITCH TECHNICIAN 03/07/2022 9:10 AM TELECOMMUNICATIONS SWITCH TECHNICIAN Narrative PATHOLOGY CH - 03/11/2022 1:09 PM TELECOMMUNICATIONS SWITCH TECHNICIAN [facility] Department of Pathology [address] [place], [place] [phone] Final Report Note to Patients: This report [...] the details. Patient Name: LYUDMILA CODY Address: [address] [place] [address] Gender: F : 1995 (Age: 26) Service: Location: N : [id number] [facility] #: [id number] Patient Type: SPECIMEN Taken: 03/07/2022 Received: 03/07/2022 Accessioned:: 03/10/2022 Reported: 03/11/2022 Physician(s): MD Sandra Perez MD Diagnosis: Source of Specimen: Imaged Thinprep Pap Test w/ Reflex HPV - Combination Worker Cytologic Material Specimen Adequacy: - Satisfactory for evaluation; endocervical/transformation zone component present General Category: - Negative for intraepithelial lesion or malignancy KEITH Pathak(ASCP) Report Electronically Reviewed and Signed Out By KEITH Pathak(ASCP) 03/11/2022 13:09:42Specimen(s) Received: A: Imaged Thinprep Pap Test w/ Reflex HPV - Combination Worker Cytologic Material Clinical History: Last Menstrual Period: [...] determined by the Surgical Pathology Department at [facility] as part of an ongoing quality improvement [...] characteristics determined by the Surgical Pathology Department [facility]. It has not been cleared or approved by the U. S. Food and Drug Administration. Sandra Vincent MD LAB CYTOLOGY ORDERABL ES Final Result Performing Organization Address City/State/ZIP Co tn Phone Number PATHOLOGY [address] [place] [address] from Last 3 Months or Most Recently Relevant to Health Maintenance Insurance [employer] [facility] HEALTHLINK OPEN ACCESS HEALTHLINK OPEN ACCESS Advance Directives For more information, please contact: [phone] * Full Code (Latest Code Status on File) Date Activated Date Inactivated Comments 11/28/2019 1:04 PM 11/28/2019 7:27 PM Care Teams Education Coordinator Relationship Specialty Start Date End Date Referring, Unknown, PCP - General Pediatrics 03/25/24
--- OUTSIDE RECORDS SUMMARY | 2024-06-20 17:40 | XMS_ITS | Referral Summary ---
Author Organization CC [facility] [address] Address [address] [place] [address] Phone Care Team Providers Care Precision Machine Operator Name Role Phone Referring, Unknown MD Primary [...] (10/20/2019): Added automatically from request for surgery [id number] Assessment & Plan (12/29/2019 3:34 PM VENEER TAPING MACHINE OFFBEARER): Chronic idiopathic constipation secondary to irritable bowel syndrome. I will increase Linzess to 290 micro g daily. Patient was also advised to use and drink juice every day with MiraLax. Follow-up in 3 months Blood in stool 10/20/2019 Overview (10/20/2019): Added automatically from request for surgery [id number] BMI 21.0-21.9, adult 09/19/2019 Generalized anxiety disorder [...] Assessment & Plan (01/01/2018 3:05 PM VENEER TAPING MACHINE OFFBEARER): Cont Aleve, use as directed. Referred to [...] (11/03/2018): Added automatically from request for surgery [id number] Arthritis of right acromioclavicular joint 11/03/2018 09/19/2019 Overview (11/03/2018): Added automatically from request for surgery [id number] Biceps tendinitis on right 11/03/2018 0 09/19/2019 Overview (11/03/2018): Added automatically from request for surgery [id number] Nontraumatic incomplete tear of right rotator cuff [...] file Legal Sex Female 7:32 PM VENEER TAPING MACHINE OFFBEARER Gender Identity Not on file Sexual Orientation Not on file Occupation Industry Job Start Date Job End Date Not on file Not on file Not on file Not on file Last Filed Vital Signs Vital Sign Reading Time Taken Comments Blood Pressure 120/82 03/27/2023 3:18 PM VENEER TAPING MACHINE OFFBEARER Pulse 91 12/29/2019 3:23 PM VENEER TAPING MACHINE OFFBEARER Temperature 36.6 C (97.8 F) 12/29/2019 3:23 PM VENEER TAPING MACHINE OFFBEARER Respiratory Rate 16 12/29/2019 3:23 PM VENEER TAPING MACHINE OFFBEARER Oxygen Saturation 99% 12/29/2019 3:23 PM VENEER TAPING MACHINE OFFBEARER Inhaled Oxygen Concentration - - Weight 52.6 kg (116 lb) 03/27/2023 3:18 PM VENEER TAPING MACHINE OFFBEARER Height 157.5 cm (5' 2 ) 03/27/2023 3:18 PM VENEER TAPING MACHINE OFFBEARER Body Mass Index 21.22 03/27/2023 3:18 PM VENEER TAPING MACHINE OFFBEARER Plan of Treatment Not on file Medical Devices Implanted Type Area Precision Machinist Device Identifier Shelf Expiration Date Model / Serial / Lot [employer] Ar-2923bc Pushlock 2.9mm 12.5mm Cannulated Eyelet Handle R D Internship Short - [id number] Implanted:Qty: 1 on 11/25/2018 by Scott Mayo MD at [facility] Right: Shoulder [employer] 08/15/2020 AR-2923BC / / [id number] Procedures Procedure Name Priority Date/Time Associated Diagnosis Comments PAP WITH REFLEX TO HIGH RISK HPV Routine 03/07/2022 9:10 AM VENEER TAPING MACHINE OFFBEARER Screening for malignant neoplasm of the cervix from Last 3 Months or Most Recently Relevant to Health Maintenance Results * Pap with reflex to High Risk HPV (03/07/2022 9:10 AM VENEER TAPING MACHINE OFFBEARER) Thin prep (Pap test) 03/07/2022 9:10 AM VENEER TAPING MACHINE OFFBEARER 03/07/2022 9:10 AM VENEER TAPING MACHINE OFFBEARER Narrative PATHOLOGY CH - 03/11/2022 1:09 PM VENEER TAPING MACHINE OFFBEARER [facility] Department of Pathology [address] [place] [address] Final Report Note to Patients: This [...] the details. Patient Name: LYUDMILA CODY Address: [address] [place] [address] Gender: F : 1995 (Age: 26) Service: Location: N : [id number] [facility] #: [id number] Patient Type: SPECIMEN Taken: 03/07/2022 Received: 03/07/2022 Accessioned:: 03/10/2022 Reported: 03/11/2022 Physician(s): MD Sandra Perez MD Diagnosis: Source of Specimen: Imaged Thinprep Pap Test w/ Reflex HPV - Earring Maker Cytologic Material Specimen Adequacy: - Satisfactory for evaluation; endocervical/transformation zone component present General Category: - Negative for intraepithelial lesion or malignancy KEITH Pathak(ASCP) Report Electronically Reviewed and Signed Out By KEITH Pathak(ASCP) 03/11/2022 13:09:42Specimen(s) Received: A: Imaged Thinprep Pap Test w/ Reflex HPV - Earring Maker Cytologic Material Clinical History: Last Menstrual Period: [...] determined by the Surgical Pathology Department at [facility] as part of an ongoing vice president [...] characteristics determined by the Surgical Pathology Department [facility]. It has not been cleared or approved by the U. S. Food and Drug Administration. Sandra Vincent MD LAB CYTOLOGY ORDERABL ES Final Result PATHOLOGY [address] [place] [address] from Last 3 Months or Most Recently Relevant to Health Maintenance Insurance [employer] [place] [address] HEALTHLINK OPEN ACCESS Advance Directives For more information, please contact: [phone] * Full Code (Latest Code Status on File) Date Activated Date Inactivated Comments 11/28/2019 1:04 PM 11/28/2019 7:27 PM Care Teams Precision Machine Operator Relationship Specialty Start Date End Date Referring, Unknown, PCP - General Pediatrics 03/25/24
[2024-06-20 18:12] LABS: Basophils Absolute Auto 0.1 K/mm3 (0.0-0.1); Basophils Percent Auto 0.5 % (0.2-1.2); Eosinophils Absolute Auto 0.1 K/mm3 (0-0.3); Hematocrit 32.4 % (37.0-47.0); Immature Granulocyte Percent A 0.8 % (0-0.5); Lymphocytes Percent Auto 21.1 % (18.3-44.2); Mean Corpuscular Hemoglobin 32.3 pg (26-34); Mean Platelet Volume 10.3 fl (7.4-10.4); Monocytes Absolute Auto 0.8 K/mm3 (0.1-0.6); Monocytes Percent Auto 6.7 % (2.6-8.5); Neutrophils Absolute Auto 8.3 K/mm3 (1.3-6.7); Neutrophils Percent Auto 69.9 % (45.5-73.1); Platelet Count Result 245 k/mm3 (150-375); Red Blood Count 3.41 M/mm3 (4.2-5.4); Red Cell Distribution Width 12.7 % (11.5-14.5); White Blood Count 11.9 K/mm3 (4.5-10.0)
[2024-06-20 18:22] LABS: Alanine Aminotransferase 14 U/L (6-35); Albumin Level 4.2 g/dL (3.5-5.1); Alkaline Phosphatase 81 U/L (38-126); Anion Gap 9 mmol/L (4-12); Aspartate Amino Transferase 19 U/L (14-36); Bilirubin,Total 0.3 mg/dL (0.2-1.3); Blood Urea Nitrogen 5 mg/dL (7-17); Carbon Dioxide 21 mmol/L (22-30); Chloride 104 mmol/L (98-107); Estimated Glomerular Filt Rate > 60; Glucose 72 mg/dL (65-110); Lipase 46 U/L (23-300); Potassium 3.7 mmol/L (3.4-5.0); Sodium 134 mmol/L (137-145)
[2024-06-21] MEDS: RHO(D) IMMUNE GLOBULIN 300 MCG/2 ML SYRINGE IM (17:25)
== END 2024-06-21 10:30 | disposition home or self-care (01) ==
LOC: ANHLAB 10:15
PROVIDERS: PCP Family Medicine; Visit Provider Obstetrics & Gynecology
DX: Z29.13 Encounter for prophylactic Rho(D) immune globulin (principal); O36.0190 Maternal care for anti-D [Rh] antibodies, unspecified trimester, not applicable or unspecified; Z3A.00 Weeks of gestation of pregnancy not specified
CPT/HCPCS: 36415; 80053; 83690; 85025; 85461; 86850; 86900; 86901; 90384; 96372; J2790

== ENCOUNTER 2024-07-30 02:00 | Observation (INO) | payer BC, SELFPAY ==
[2024-07-30] VITALS (27 sets, daily range): BP systolic 114–133; BP diastolic 74–84; PULSE 74–116; O2SAT 98–100; BMI 24.5
--- OUTSIDE RECORDS SUMMARY | 2024-07-30 02:07 | XMS_ITS | Encounter Summary ---
Demographics Address [address] [place] [address] [place] [address] Mobile Phone Home Phone Email Address Preferred Language Canadian Marital Status Single Pentecostalism Affiliation Unknown Race White Ethnic Group Not or Lati no Author Organization [facility] Address [address] [place] [address] Phone Care Team Providers Care Manager Commercial Name Role Phone Tania Berry DO Primary Care Provider +1- [phone] Referring, Unknown MD Primary Care Provider Unav ailable Encounter Details Date Type Department Care Team (Late st Contact Info) Description 03/11/2022 Orders Only [facility] [address] [place] [address] Scanning, Provider Social History Tobacco [...] on file Legal Sex Female 7:32 PM RING MAKER Gender Identity Not on file Sexual Orientation [...] on filedocumented in this encounter Care Teams Manager Commercial Relationship Specialty Start Date End Date Tania Berry DO PCP - General Family Medicine 09/24/17 11/26/23 Referring, Unknown, PCP - General Pediatrics 03/25/24 documented as of this encounter
--- OUTSIDE RECORDS SUMMARY | 2024-07-30 02:07 | XMS_ITS | Referral Summary ---
Author Organization CC [facility] [address] Address [address] [place] [address] Phone Care Team Providers Care Musical Instrument Maker Or Repairer Name Role Phone Referring, Unknown MD Primary [...] (10/20/2019): Added automatically from request for surgery [id number] Assessment & Plan (12/29/2019 3:34 PM CHIEF OPERATING ENGINEER): Chronic idiopathic constipation secondary to irritable bowel syndrome. I will increase Linzess to 290 micro g daily. Patient was also advised to use and drink juice every day with MiraLax. Follow-up in 3 months Blood in stool 10/20/2019 Overview (10/20/2019): Added automatically from request for surgery [id number] BMI 21.0-21.9, adult 09/19/2019 Generalized anxiety disorder [...] 09/25/2017 Assessment & Plan (01/01/2018 3:05 PM CHIEF OPERATING ENGINEER): Cont Aleve, use as directed. Referred to [...] (11/03/2018): Added automatically from request for surgery [id number] Arthritis of right acromioclavicular joint 11/03/2018 09/19/2019 Overview (11/03/2018): Added automatically from request for surgery [id number] Biceps tendinitis on right 11/03/2018 0 09/19/2019 Overview (11/03/2018): Added automatically from request for surgery [id number] Nontraumatic incomplete tear of right rotator cuff [...] file Legal Sex Female 7:32 PM CHIEF OPERATING ENGINEER Gender Identity Not on file Sexual Orientation Not on file Occupation Industry Job Start Date Job End Date Not on file Not on file Not on file Not on file Last Filed Vital Signs Vital Sign Reading Time Taken Comments Blood Pressure 120/82 03/27/2023 3:18 PM CHIEF OPERATING ENGINEER Pulse 91 12/29/2019 3:23 PM CHIEF OPERATING ENGINEER Temperature 36.6 C (97.8 F) 12/29/2019 3:23 PM CHIEF OPERATING ENGINEER Respiratory Rate 16 12/29/2019 3:23 PM CHIEF OPERATING ENGINEER Oxygen Saturation 99% 12/29/2019 3:23 PM CHIEF OPERATING ENGINEER Inhaled Oxygen Concentration - - Weight 52.6 kg (116 lb) 03/27/2023 3:18 PM CHIEF OPERATING ENGINEER Height 157.5 cm (5' 2) 03/27/2023 3:18 PM CHIEF OPERATING ENGINEER Body Mass Index 21.22 03/27/2023 3:18 PM CHIEF OPERATING ENGINEER Plan of Treatment Not on file Medical Devices Implanted Type Area Photo Retoucher Device Identifier Shelf Expiration Date Model / Serial / Lot [employer] Ar-2923bc Pushlock 2.9mm 12.5mm Cannulated Eyelet Handle Space Scheduler Short - [id number] Implanted:Qty: 1 on 11/25/2018 by Scott Mayo MD at [facility] Right: Shoulder [employer] 08/15/2020 AR-2923BC / / [id number] Procedures Procedure Name Priority Date/Time Associated Diagnosis Comments PAP WITH REFLEX TO HIGH RISK HPV Routine 03/07/2022 9:10 AM CHIEF OPERATING ENGINEER Screening for malignant neoplasm of the cervix from Last 3 Months or Most Recently Relevant to Health Maintenance Results * Pap with reflex to High Risk HPV (03/07/2022 9:10 AM CHIEF OPERATING ENGINEER) Thin prep (Pap test) 03/07/2022 9:10 AM CHIEF OPERATING ENGINEER 03/07/2022 9:10 AM CHIEF OPERATING ENGINEER Narrative PATHOLOGY CH - 03/11/2022 1:09 PM CHIEF OPERATING ENGINEER [facility] Department of Pathology [address] [place] [address] Final Report Note to Patients: This [...] the details. Patient Name: LYUDMILA CODY Address: [address] [place] [address] Gender: F : 1995 (Age: 26) Service: Location: N : [id number] [facility] #: [id number] Patient Type: SPECIMEN Taken: 03/07/2022 Received: 03/07/2022 Accessioned:: 03/10/2022 Reported: 03/11/2022 Physician(s): MD Sandra Perez MD Diagnosis: Source of Specimen: Imaged Thinprep Pap Test w/ Reflex HPV - Global Account Director Cytologic Material Specimen Adequacy: - Satisfactory for evaluation; endocervical/transformation zone component present General Category: - Negative for intraepithelial lesion or malignancy KEITH Pathak(ASCP) Report Electronically Reviewed and Signed Out By KEITH Pathak(ASCP) 03/11/2022 13:09:42Specimen(s) Received: A: Imaged Thinprep Pap Test w/ Reflex HPV - Global Account Director Cytologic Material Clinical History: Last Menstrual Period: [...] determined by the Surgical Pathology Department at [facility] as part of an ongoing quality assurance lab technician program and in compliance with federally [...] characteristics determined by the Surgical Pathology Department [facility]. It has not been cleared or approved by the U. S. Food and Drug Administration. Sandra Vincent MD LAB CYTOLOGY ORDERABL ES Final Result PATHOLOGY [address] [place] [address] from Last 3 Months or Most Recently Relevant to Health Maintenance Insurance [employer] [place] [address] HEALTHLINK OPEN ACCESS Advance Directives For more information, please contact: [phone] * Full Code (Latest Code Status on File) Date Activated Date Inactivated Comments 11/28/2019 1:04 PM 11/28/2019 7:27 PM Care Teams Musical Instrument Maker Or Repairer Relationship Specialty Start Date End Date Referring, Unknown, PCP - General Pediatrics 03/25/24
--- OUTSIDE RECORDS SUMMARY | 2024-07-30 02:07 | XMS_ITS | Clinical Summary ---
Author Organization CC [facility] [address] Address [address] [place] [address] Phone Care Team Providers Care Finance Analyst Name Role Phone Referring, Unknown MD Primary [...] (10/20/2019): Added automatically from request for surgery [id number] Assessment & Plan (12/29/2019 3:34 PM VAN OWNER OPERATOR): Chronic idiopathic constipation secondary to irritable bowel syndrome. I will increase Linzess to 290 micro g daily. Patient was also advised to use and drink juice every day with MiraLax. Follow-up in 3 months Blood in stool 10/20/2019 Overview (10/20/2019): Added automatically from request for surgery [id number] BMI 21.0-21.9, adult 09/19/2019 Generalized anxiety disorder [...] 09/25/2017 Assessment & Plan (01/01/2018 3:05 PM VAN OWNER OPERATOR): Cont Aleve, use as directed. Referred to [...] (11/03/2018): Added automatically from request for surgery [id number] Arthritis of right acromioclavicular joint 11/03/2018 09/19/2019 Overview (11/03/2018): Added automatically from request for surgery [id number] Biceps tendinitis on right 11/03/2018 0 09/19/2019 Overview (11/03/2018): Added automatically from request for surgery [id number] Nontraumatic incomplete tear of right rotator cuff [...] on file Legal Sex Female 7:32 PM VAN OWNER OPERATOR Gender Identity Not on file Sexual Orientation [...] Comments Blood Pressure 120/82 03/27/2023 3:18 PM VAN OWNER OPERATOR Pulse 91 12/29/2019 3:23 PM VAN OWNER OPERATOR Temperature 36.6 C (97.8 F) 12/29/2019 3:23 PM VAN OWNER OPERATOR Respiratory Rate 16 12/29/2019 3:23 PM VAN OWNER OPERATOR Oxygen Saturation 99% 12/29/2019 3:23 PM VAN OWNER OPERATOR Inhaled Oxygen Concentration - - Weight 52.6 kg (116 lb) 03/27/2023 3:18 PM VAN OWNER OPERATOR Height 157.5 cm (5' 2) 03/27/2023 3:18 PM VAN OWNER OPERATOR Body Mass Index 21.22 03/27/2023 3:18 PM VAN OWNER OPERATOR Plan of Treatment Health Maintenance Due Date [...] this topic Medical Devices Implanted Type Area Tax Accounting Assistant Device Identifier Shelf Expiration Date Model / Serial / Lot [employer] Ar-2923bc Pushlock 2.9mm 12.5mm Cannulated Eyelet Handle Butt Welder Short - [id number] Implanted:Qty: 1 on 11/25/2018 by Scott Mayo MD at [facility] Right: Shoulder [employer] 08/15/2020 AR-2923BC / / [id number] Procedures Procedure Name Priority Date/Time Associated Diagnosis Comments PAP WITH REFLEX TO HIGH RISK HPV Routine 03/07/2022 9:10 AM VAN OWNER OPERATOR Screening for malignant neoplasm of the cervix from Last 3 Months or Most Recently Relevant to Health Maintenance Results * Pap with reflex to High Risk HPV (03/07/2022 9:10 AM VAN OWNER OPERATOR) Thin prep (Pap test) 03/07/2022 9:10 AM VAN OWNER OPERATOR 03/07/2022 9:10 AM VAN OWNER OPERATOR Narrative PATHOLOGY CH - 03/11/2022 1:09 PM VAN OWNER OPERATOR [facility] Department of Pathology [address] [place], [place] [id number] Final Report Note to Patients: This report [...] the details. Patient Name: LYUDMILA CODY Address: [address] [place] [address] Gender: F : 1995 (Age: 26) Service: Location: N : [id number] [facility] #: [id number] Patient Type: SPECIMEN Taken: 03/07/2022 Received: 03/07/2022 Accessioned:: 03/10/2022 Reported: 03/11/2022 Physician(s): MD Sandra Perez MD Diagnosis: Source of Specimen: Imaged Thinprep Pap Test w/ Reflex HPV - Dermatology Teacher Cytologic Material Specimen Adequacy: - Satisfactory for evaluation; endocervical/transformation zone component present General Category: - Negative for intraepithelial lesion or malignancy KEITH Pathak(ASCP) Report Electronically Reviewed and Signed Out By KEITH Pathak(ASCP) 03/11/2022 13:09:42Specimen(s) Received: A: Imaged Thinprep Pap Test w/ Reflex HPV - Dermatology Teacher Cytologic Material Clinical History: Last Menstrual Period: [...] by the Surgical Pathology Department at [facility] as part of an ongoing quality engineering manager program and in compliance with federally [...] characteristics determined by the Surgical Pathology Department [facility]. It has not been cleared or approved by the U. S. Food and Drug Administration. Sandra Vincent MD LAB CYTOLOGY ORDERABL ES Final Result Performing Organization Address City/State/ZIP [place] Phone Number PATHOLOGY [address] [place] [address] from Last 3 Months or Most Recently Relevant to Health Maintenance Insurance [facility] HEALTHLINK OPEN ACCESS HEALTHLINK OPEN ACCESS Advance Directives For more information, please contact: [phone] * Full Code (Latest Code Status on File) Date Activated Date Inactivated Comments 11/28/2019 1:04 PM 11/28/2019 7:27 PM Care Teams Finance Analyst Relationship Specialty Start Date End Date Referring, Unknown, PCP - General Pediatrics 03/25/24
--- NOTE | 2024-07-30 04:01 | OBADM ---
This patient, Diana Ramsay, admitted to the OB room OB Post 112 for observation. Patient/family oriented to hospital policies and general routines including ID bracelet, bed and alarms, visiting hours, pain management, procedures, bathroom and other care routines, personal items, smoking policy, room service/diet, and visiting hours. Patient/Family are encouraged to report perceived risks to care and to ask questions if they do not understand what they are told or what they should do.
[2024-07-30 04:28] LABS: Add Urine Microscopic? NO; Appearance Urine Clear (Clear); Basophils Absolute Auto 0.1 K/mm3 (0.0-0.1); Basophils Percent Auto 0.6 % (0.2-1.2); Bilirubin Urine Negative (Negative); Blood Urine Negative (Negative); Color Urine Yellow (Yellow); Eosinophils Absolute Auto 0.1 K/mm3 (0-0.3); Eosinophils Percent Auto 1.1 % (0-4.4); Glucose Urine UA Negative (Negative); Hematocrit 32.2 % (37.0-47.0); Immature Granulocyte Absolute 0.09 K/mm3 (0.00-0.031); Immature Granulocyte Percent A 0.8 % (0-0.5); Ketones Urine Negative (Negative); Leukocyte Esterase Ur Negative LEU/UL (Negative); Lymphocytes Absolute Auto 2.47 K/mm3 (0.9-3.2); Lymphocytes Percent Auto 21.8 % (18.3-44.2); Mean Corpuscular HGB Conc 34.2 g/dl (32-36); Mean Corpuscular Hemoglobin 32.4 pg (26-34); Mean Corpuscular Volume 94.7 fl (80-100); Mean Platelet Volume 10.5 fl (7.4-10.4); Monocytes Absolute Auto 0.8 K/mm3 (0.1-0.6); Monocytes Percent Auto 6.7 % (2.6-8.5); Neutrophils Absolute Auto 7.8 K/mm3 (1.3-6.7); Nitrate Urine Negative (Negative); Platelet Count Result 223 k/mm3 (150-375); Protein Urine Negative (Negative); Red Cell Distribution Width 13.2 % (11.5-14.5); White Blood Count 11.4 K/mm3 (4.5-10.0); pH Urine 6.5 (5.0-9.0)
[2024-07-30 04:48] LABS: Alanine Aminotransferase 14 U/L (6-35); Albumin Level 3.9 g/dL (3.5-5.1); Alkaline Phosphatase 108 U/L (38-126); Anion Gap 6 mmol/L (4-12); Aspartate Amino Transferase 22 U/L (14-36); Bilirubin,Total 0.4 mg/dL (0.2-1.3); Blood Urea Nitrogen 4 mg/dL (7-17); Carbon Dioxide 22 mmol/L (22-30); Chloride 105 mmol/L (98-107); Estimated CRCL calculation 140 ml/min; Estimated Glomerular Filt Rate > 60; Glucose 85 mg/dL (65-110); Potassium 3.4 mmol/L (3.4-5.0); Sodium 133 mmol/L (137-145)
[2024-07-30] MEDS: TERBUTALINE SULFATE 1 MG/ML VIAL 0.25 MG SUB-Q (04:55)
--- NOTE | 2024-08-25 11:23 | P.PNOB_ITS ---
OB - Triage/Final Diagnosis Visit Information Comments/Additional reasons for admission: I have assessed the risk for this patient, Diana Ramsay, and determined that she would benefit from observation care. Evaluation Laboratory results: Laboratory Tests 07/30/24 04:08 WBC 11.4 H RBC 3.40 L Hgb 11.0 L Hct 32.2 L MCV 94.7 MCH 32.4 MCHC 34.2 RDW 13.2 Plt Count 223 MPV 10.5 H Immature Gran % (Auto) 0.8 H Neut % (Auto) 69.0 Lymph % (Auto) 21.8 [place] % (Auto) 6.7 Eos % (Auto) 1.1 Baso % (Auto) 0.6 Lymph # (Auto) 2.47 [place] # (Auto) 0.8 H Eos # (Auto) 0.1 Baso # (Auto) 0.1 Abs Immat Gran (auto) 0.09 H Absolute Neuts (auto) 7.8 H Absolute Nucleated RBC 0.000 Nucleated RBC % 0.0 Sodium 133 L Potassium 3.4 Chloride 105 Carbon Dioxide 22 Anion Gap 6 BUN 4 L Creatinine 0.38 L Estim Creat Clear Calc 140 Estimated GFR > 60 Glucose 85 Calcium 9.0 Total Bilirubin 0.4 AST 22 ALT 14 Alkaline Phosphatase 108 Total Protein 7.0 Albumin 3.9 Urine Color Yellow Urine Appearance Clear Urine pH 6.5 Ur Specific [place] 1.020 Urine Protein Negative Urine Glucose (UA) Negative Urine Ketones Negative Ur Blood (Man) Negative Urine Nitrate Negative Urine Bilirubin Negative Urine Urobilinogen 1.0 Leukocyte Esterase Rfl Negative Final Diagnosis (1) contractions: Code(s): O47.00 - False labor before 37 completed weeks of gestation, unspecified trimester Status: Acute
== END 2024-07-30 06:07 | disposition home or self-care (01) ==
PROVIDERS: Admitting Provider Obstetrics & Gynecology; PCP Family Medicine; Visit Provider Obstetrics & Gynecology
DX: O47.03 False labor before 37 completed weeks of gestation, third trimester (principal); Z3A.34 34 weeks gestation of pregnancy
CPT/HCPCS: 36415; 80053; 81003; 85025; 96372; G0378; G0379; J3105

== ENCOUNTER 2024-09-01 01:54 | Inpatient (IN) | payer BC, SELFPAY ==
[2024-09-01] VITALS (227 sets, daily range): BP systolic 79–146; BP diastolic 16–97; PULSE 63–248; TEMP 36.2–37.5; O2SAT 94–100; BMI 26.4
--- OUTSIDE RECORDS SUMMARY | 2024-09-01 02:15 | XMS_ITS | Clinical Summary ---
Author Organization CC [facility] [address] Address [address] [place] [address] Phone Care Team Providers Care System Safety Engineer Name Role Phone Referring, Unknown MD Primary [...] (10/20/2019): Added automatically from request for surgery [id number] Assessment & Plan (12/29/2019 3:34 PM VISUAL MERCHANDISING ASSOCIATE): Chronic idiopathic constipation secondary to irritable bowel syndrome. I will increase Linzess to 290 micro g daily. Patient was also advised to use and drink juice every day with MiraLax. Follow-up in 3 months Blood in stool 10/20/2019 Overview (10/20/2019): Added automatically from request for surgery [id number] BMI 21.0-21.9, adult 09/19/2019 Generalized anxiety disorder [...] 09/25/2017 Assessment & Plan (01/01/2018 3:05 PM VISUAL MERCHANDISING ASSOCIATE): Cont Aleve, use as directed. Referred to [...] (11/03/2018): Added automatically from request for surgery [id number] Arthritis of right acromioclavicular joint 11/03/2018 09/19/2019 Overview (11/03/2018): Added automatically from request for surgery [id number] Biceps tendinitis on right 11/03/2018 0 09/19/2019 Overview (11/03/2018): Added automatically from request for surgery [id number] Nontraumatic incomplete tear of right rotator cuff [...] on file Legal Sex Female 7:32 PM VISUAL MERCHANDISING ASSOCIATE Gender Identity Not on file Sexual Orientation [...] Comments Blood Pressure 120/82 03/27/2023 3:18 PM VISUAL MERCHANDISING ASSOCIATE Pulse 91 12/29/2019 3:23 PM VISUAL MERCHANDISING ASSOCIATE Temperature 36.6 C (97.8 F) 12/29/2019 3:23 PM VISUAL MERCHANDISING ASSOCIATE Respiratory Rate 16 12/29/2019 3:23 PM VISUAL MERCHANDISING ASSOCIATE Oxygen Saturation 99% 12/29/2019 3:23 PM VISUAL MERCHANDISING ASSOCIATE Inhaled Oxygen Concentration - - Weight 52.6 kg (116 lb) 03/27/2023 3:18 PM VISUAL MERCHANDISING ASSOCIATE Height 157.5 cm (5' 2) 03/27/2023 3:18 PM VISUAL MERCHANDISING ASSOCIATE Body Mass Index 21.22 03/27/2023 3:18 PM VISUAL MERCHANDISING ASSOCIATE Plan of Treatment Health Maintenance Due Date [...] this topic Medical Devices Implanted Type Area Licensed Optician Device Identifier Shelf Expiration Date Model / Serial / Lot [employer] Ar-2923bc Pushlock 2.9mm 12.5mm Cannulated Eyelet Handle Forest Scientist Short - [id number] Implanted:Qty: 1 on 11/25/2018 by Scott Mayo MD at [facility] Right: Shoulder [employer] 08/15/2020 AR-2923BC / / [id number] Procedures Procedure Name Priority Date/Time Associated Diagnosis Comments PAP WITH REFLEX TO HIGH RISK HPV Routine 03/07/2022 9:10 AM VISUAL MERCHANDISING ASSOCIATE Screening for malignant neoplasm of the cervix from Last 3 Months or Most Recently Relevant to Health Maintenance Results * Pap with reflex to High Risk HPV (03/07/2022 9:10 AM VISUAL MERCHANDISING ASSOCIATE) Thin prep (Pap test) 03/07/2022 9:10 AM VISUAL MERCHANDISING ASSOCIATE 03/07/2022 9:10 AM VISUAL MERCHANDISING ASSOCIATE Narrative PATHOLOGY CH - 03/11/2022 1:09 PM VISUAL MERCHANDISING ASSOCIATE [facility] Department of Pathology [address] [place], [place] [id number] Final Report Note to Patients: This report [...] the details. Patient Name: LYUDMILA CODY Address: [address] [place] [address] Gender: F : 1995 (Age: 26) Service: Location: N : [id number] [facility] #: [id number] Patient Type: SPECIMEN Taken: 03/07/2022 Received: 03/07/2022 Accessioned:: 03/10/2022 Reported: 03/11/2022 Physician(s): MD Sandra Perez MD Diagnosis: Source of Specimen: Imaged Thinprep Pap Test w/ Reflex HPV - Bankruptcy Attorney Cytologic Material Specimen Adequacy: - Satisfactory for evaluation; endocervical/transformation zone component present General Category: - Negative for intraepithelial lesion or malignancy KEITH Pathak(ASCP) Report Electronically Reviewed and Signed Out By KEITH Pathak(ASCP) 03/11/2022 13:09:42Specimen(s) Received: A: Imaged Thinprep Pap Test w/ Reflex HPV - Bankruptcy Attorney Cytologic Material Clinical History: Last Menstrual Period: [...] determined by the Surgical Pathology Department at [facility] as part of an ongoing quality improvement specialist program and in compliance with federally [...] characteristics determined by the Surgical Pathology Department [facility]. It has not been cleared or approved by the U. S. Food and Drug Administration. Sandra Vincent MD LAB CYTOLOGY ORDERABL ES Final Result Performing Organization Address City/State/ZIP [place] Phone Number PATHOLOGY [address] [place] [address] from Last 3 Months or Most Recently Relevant to Health Maintenance Insurance [facility] HEALTHLINK OPEN ACCESS HEALTHLINK OPEN ACCESS Advance Directives For more information, please contact: [phone] * Full Code (Latest Code Status on File) Date Activated Date Inactivated Comments 11/28/2019 1:04 PM 11/28/2019 7:27 PM Care Teams System Safety Engineer Relationship Specialty Start Date End Date Referring, Unknown, PCP - General Pediatrics 03/25/24
--- OUTSIDE RECORDS SUMMARY | 2024-09-01 02:15 | XMS_ITS | Encounter Summary ---
Demographics Address [address] [place] [address] [place] [address] Mobile Phone Home Phone Email Address Preferred Language Sudanese Marital Status Single Gnosticist Affiliation Unknown Race White Ethnic Group Not or Lati no Author Organization [facility] Address [address] [place] [address] Phone Care Team Providers Care Six Horse Hitch Driver Name Role Phone Tania Berry DO Primary Care Provider [phone] Referring, Unknown MD Primary Care Provider Unav ailable Encounter Details Date Type Department Care Team (Late st Contact Info) Description 03/11/2022 Orders Only [facility] [address] [place] [address] Scanning, Provider Social History Tobacco [...] on file Legal Sex Female 7:32 PM METAL MODEL MAKER Gender Identity Not on file Sexual [...] on filedocumented in this encounter Care Teams Six Horse Hitch Driver Relationship Specialty Start Date End Date Tania Berry DO PCP - General Family Medicine 09/24/17 11/26/23 Referring, Unknown, PCP - General Pediatrics 03/25/24 documented as of this encounter
--- OUTSIDE RECORDS SUMMARY | 2024-09-01 02:15 | XMS_ITS | Referral Summary ---
Author Organization CC [facility] [address] Address [address] [place] [address] Phone Care Team Providers Care Manager Of Warehouse Name Role Phone Referring, Unknown MD Primary [...] (10/20/2019): Added automatically from request for surgery [id number] Assessment & Plan (12/29/2019 3:34 PM CENTRAL OFFICE INSPECTOR): Chronic idiopathic constipation secondary to irritable bowel syndrome. I will increase Linzess to 290 micro g daily. Patient was also advised to use and drink juice every day with MiraLax. Follow-up in 3 months Blood in stool 10/20/2019 Overview (10/20/2019): Added automatically from request for surgery [id number] BMI 21.0-21.9, adult 09/19/2019 Generalized anxiety disorder [...] 09/25/2017 Assessment & Plan (01/01/2018 3:05 PM CENTRAL OFFICE INSPECTOR): Cont Aleve, use as directed. Referred to [...] (11/03/2018): Added automatically from request for surgery [id number] Arthritis of right acromioclavicular joint 11/03/2018 09/19/2019 Overview (11/03/2018): Added automatically from request for surgery [id number] Biceps tendinitis on right 11/03/2018 0 09/19/2019 Overview (11/03/2018): Added automatically from request for surgery [id number] Nontraumatic incomplete tear of right rotator cuff [...] on file Legal Sex Female 7:32 PM CENTRAL OFFICE INSPECTOR Gender Identity Not on file Sexual Orientation Not on file Occupation Industry Job Start Date Job End Date Not on file Not on file Not on file Not on file Last Filed Vital Signs Vital Sign Reading Time Taken Comments Blood Pressure 120/82 03/27/2023 3:18 PM CENTRAL OFFICE INSPECTOR Pulse 91 12/29/2019 3:23 PM CENTRAL OFFICE INSPECTOR Temperature 36.6 C (97.8 F) 12/29/2019 3:23 PM CENTRAL OFFICE INSPECTOR Respiratory Rate 16 12/29/2019 3:23 PM CENTRAL OFFICE INSPECTOR Oxygen Saturation 99% 12/29/2019 3:23 PM CENTRAL OFFICE INSPECTOR Inhaled Oxygen Concentration - - Weight 52.6 kg (116 lb) 03/27/2023 3:18 PM CENTRAL OFFICE INSPECTOR Height 157.5 cm (5' 2) 03/27/2023 3:18 PM CENTRAL OFFICE INSPECTOR Body Mass Index 21.22 03/27/2023 3:18 PM CENTRAL OFFICE INSPECTOR Plan of Treatment Not on file Medical Devices Implanted Type Area Government Gauger Device Identifier Shelf Expiration Date Model / Serial / Lot [employer] Ar-2923bc Pushlock 2.9mm 12.5mm Cannulated Eyelet Handle Sewer Pipe Offbearer Short - [id number] Implanted:Qty: 1 on 11/25/2018 by Scott Mayo MD at [facility] Right: Shoulder [employer] 08/15/2020 AR-2923BC / / [id number] Procedures Procedure Name Priority Date/Time Associated Diagnosis Comments PAP WITH REFLEX TO HIGH RISK HPV Routine 03/07/2022 9:10 AM CENTRAL OFFICE INSPECTOR Screening for malignant neoplasm of the cervix from Last 3 Months or Most Recently Relevant to Health Maintenance Results * Pap with reflex to High Risk HPV (03/07/2022 9:10 AM CENTRAL OFFICE INSPECTOR) Thin prep (Pap test) 03/07/2022 9:10 AM CENTRAL OFFICE INSPECTOR 03/07/2022 9:10 AM CENTRAL OFFICE INSPECTOR Narrative PATHOLOGY CH - 03/11/2022 1:09 PM CENTRAL OFFICE INSPECTOR [facility] Department of Pathology [address] [place] [id number] Final Report Note to Patients: This [...] the details. Patient Name: LYUDMILA CODY Address: [address] [place] [address] Gender: F : 1995 (Age: 26) Service: Location: N : [id number] [facility] #: [id number] Patient Type: SPECIMEN Taken: 03/07/2022 Received: 03/07/2022 Accessioned:: 03/10/2022 Reported: 03/11/2022 Physician(s): MD Sandra Perez MD Diagnosis: Source of Specimen: Imaged Thinprep Pap Test w/ Reflex HPV - Lamp Tester And Inspector Cytologic Material Specimen Adequacy: - Satisfactory for evaluation; endocervical/transformation zone component present General Category: - Negative for intraepithelial lesion or malignancy KEITH Pathak(ASCP) Report Electronically Reviewed and Signed Out By KEITH Pathak(ASCP) 03/11/2022 13:09:42Specimen(s) Received: A: Imaged Thinprep Pap Test w/ Reflex HPV - Lamp Tester And Inspector Cytologic Material Clinical History: Last Menstrual Period: [...] determined by the Surgical Pathology Department at [facility] as part of an ongoing air quality instrument specialist program and in compliance with federally [...] characteristics determined by the Surgical Pathology Department [facility]. It has not been cleared or approved by the U. S. Food and Drug Administration. Snadra Vincent MD LAB CYTOLOGY ORDERABL ES Final Result PATHOLOGY [address] [place] [address] from Last 3 Months or Most Recently Relevant to Health Maintenance Insurance [employer] [place] [address] HEALTHLINK OPEN ACCESS Advance Directives For more information, please contact: [phone] * Full Code (Latest Code Status on File) Date Activated Date Inactivated Comments 11/28/2019 1:04 PM 11/28/2019 7:27 PM Care Teams Manager Of Warehouse Relationship Specialty Start Date End Date Referring, Unknown, PCP - General Pediatrics 03/25/24
[2024-09-01 02:32] LABS: Hematocrit 34.7 % (37.0-47.0); Hemoglobin 11.9 g/dL (12.0-15.0); Immature Granulocyte Percent A 0.9 % (0-0.5); Lymphocytes Absolute Auto 2.80 K/mm3 (0.9-3.2); Mean Corpuscular HGB Conc 34.3 g/dl (32-36); Mean Corpuscular Hemoglobin 32.1 pg (26-34); Mean Corpuscular Volume 93.5 fl (80-100); Nucleated Red Blood Cells Absolute Auto 0.000 K/mm3 (0.0-0.012); Nucleated Red Blood Cells Perc 0.0 % (0.0-0.2); Platelet Count Result 234 k/mm3 (150-375); Red Blood Count 3.71 M/mm3 (4.2-5.4); White Blood Count 12.3 K/mm3 (4.5-10.0)
--- NOTE | 2024-09-01 02:42 | LDADM ---
This patient, Diana Ramsay, was admitted to Labor/Delivery/Recovery 107 on 09/01/24 at 01:54. Plans for labor, pain management and were discussed with patient. Patient/family oriented to hospital policies and general routines including ID bracelet, bed and alarms, visiting hours, pain management, procedures, bathroom and other care routines, personal items, smoking policy, room service/diet and guest tray routines, infant security routines, and visiting hours. Patient/Family are encouraged to report perceived risks to care and to ask questions if they do not understand what they are told or what they should do. See OBIX for further documentation.
[2024-09-01] MEDS: AMPICILLIN SODIUM 2 GM in SODIUM CHLORIDE 0.9% IV 100 ML 200 ML IVPB (02:45)
[2024-09-01 03:23] LABS: Syphilis IgG/IgM Antibody Non-Reactive (Nonreactive)
[2024-09-01] MEDS: OXYTOCIN 30 UNITS/NS 500 ML 30 UNITS/500 ML BAG 6 UNITS IV CONT (06:45)
[2024-09-01] MEDS: AMPICILLIN SODIUM 1 GM in SODIUM CHLORIDE 0.9% IV 50 ML 100 ML IVPB ×4 (06:45→18:36)
--- NOTE | 2024-09-01 07:26 | WPDHPUPDATE1 ---
History and Physical Update Update Date/Time: 09/01/24 07:26 History and Physical has been reviewed, including an updated exam of the patient. There are NO changes in the patient's condition. Risks, benefits, and alternatives have been discussed and questions answered. Patient agrees to proceed with procedure.
--- NOTE | 2024-09-01 07:27 | P.HP_ITS ---
Obstetrics - Admit Note Admission Note: 29-year-old primigravid patient at 39 weeks gestation presents with spontaneous rupture membranes. Fluid was clear. Irregular contractions. SVE: /-3 clear fluid P: pitocin augmentation/pain meds prn/plan record reviewed. No pertinent additions to the history and/or any subse quent changes in the physical findings that are not consistent with the expected course of the were found. Additions to the history and/or subsequent changes in the physical findings follow. None.
--- NOTE | 2024-09-01 08:39 | P.PNAN_ITS ---
Anes - Eval Pre Procedure Procedure: Labor Epidural Date/Time: 09/01/24 08:39 Surgeon: Alfredo Preop Diagnosis: Labor Pain Pre Op Diagnosis: Leaking Patient Data Age: 29 Gender: F Height: 1.57 m Weight: 65.45 kg Last Vital Signs Temp 36.6 C 09/01/24 04:56 Pulse 88 09/01/24 08:00 BP 139/97 H 09/01/24 08:00 Pulse Ox 100 09/01/24 08:38 Allergies Allergy/AdvReac Type Severity Reaction Status Date / Time No Known Allergies Allergy Verified 09/01/24 02:45 Home Medications ?Medication ?Instructions ?Recorded ?Confirmed ?Type vitamins-iron fumarate 65 1 tablet PO DAILY 01/12/24 09/01/24 History mg iron-folic acid 1 mg tablet magnesium 200 mg tablet 200 mg PO DAILY 06/06/24 09/01/24 History Laboratory Tests 09/01/24 02:27 WBC 12.3 H K/mm3 (4.5-10.0) RBC 3.71 L M/mm3 (4.2-5.4) Hgb 11.9 L g/dL (12.0-15.0) Hct 34.7 L % (37.0-47.0) MCV 93.5 fl (80-100) MCH 32.1 pg (26-34) MCHC 34.3 g/dl (32-36) RDW 13.1 % (11.5-14.5) Plt Count 234 k/mm3 (150-375) MPV 10.8 H fl (7.4-10.4) Immature Gran % (Auto) 0.9 H % (0-0.5) Neut % (Auto) 68.2 % (45.5-73.1) Lymph % (Auto) 22.7 % (18.3-44.2) [place] % (Auto) 6.6 % (2.6-8.5) Eos % (Auto) 1.0 % (0-4.4) Baso % (Auto) 0.6 % (0.2-1.2) Lymph # (Auto) 2.80 K/mm3 (0.9-3.2) [place] # (Auto) 0.8 H K/mm3 (0.1-0.6) Eos # (Auto) 0.1 K/mm3 (0-0.3) Baso # (Auto) 0.1 K/mm3 (0.0-0.1) Abs Immat Gran (auto) 0.11 H K/mm3 (0.00-0.031) Absolute Neuts (auto) 8.4 H K/mm3 (1.3-6.7) Absolute Nucleated RBC 0.000 K/mm3 (0.0-0.012) Nucleated RBC % 0.0 % (0.0-0.2) Syphilis IgG/IgM Ab Non-reactive (Nonreactive) Blood Type O Negative Antibody Screen Positive Antibody Identification Passive Due to RH Imm Glob Antigen Identification Cancelled HARPER, IgG Interpret Not Performed HARPER, Poly Interpret Neg HARPER, Complement Interp Not Performed Patient hx anesthesia problems: none Family hx anesthesia problems: none Results Review: All pre-operative results and documents have been reviewed as part of the pre- operative evaluation. PENDING SALE TO [facility] Past Medical History Medical History Anxiety Surgical History Surgical History H/O shoulder surgery (~2019) torn rotator cuff repair Family History Family History Grandparent Cerebrovascular accident maternal grandfather Acute myocardial infarction paternal grandfather / maternal grandfather Diabetes mellitus maternal grandmother Mother Hypertension Social History Social History Smoking status: Never smoker Second hand tobacco smoke exposure: No Alcohol intake: never Substance use: never Substance use type: does not use Do You Feel Safe in your Home?: Yes Lack of Transportation: No Lack of Food: Never True Current Housing: I Have Housing Concerned About Future Housing: No Difficulty Paying Gas/Electric Bills: No Difficulty Paying for Meds: No Currently Unemployed: No Education: High School Diploma/GED Difficulty w/ Childcare or Family Care: No Living arrangements: with family Additional living arrangements comments: Occupation/Education: 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
[2024-09-01] MEDS: ONDANSETRON INJ 4 MG/2 ML VIAL IV PUSH ×2 (12:00→18:35)
--- NOTE | 2024-09-01 19:49 | P.PCNOB_ITS ---
OB - Vaginal Delivery Note Procedure Delivery date: 09/01/24 Delivery augmentation: Pitocin Delivery monitor: External FHT and Internal Uterine Route of delivery: Episiotomy description: None Laceration Description: Perineal - 1st Degree Delivery repair: chromic Specimen: No Quantitative Blood Loss (ml): 300 Anesthesia type: Epidural Disposition: Floor Complications: No immediate complications Narrative: Patient prepped draped usual manner for this procedure. Maternal expulsive efforts readily delivered vertex, rest of baby without difficulty. Cord was clamped cut and placenta delivered spontaneously. Uterus was well contracted with minimal bleeding. Cervix vagina vulva were inspected with first-degree laceration noted and rendered hemostatic and approximated using 0 chromic in interlocking suture. Minimal bleeding uterus again contracted and at this point the procedure was considered terminated with immediate postop condition of mother baby both excellent. [place] Baby Gestational Age by Date: 39 Infant gender: Male presentation: vertex position: Right Occiput Anterior Placenta delivery description: Spontaneous Cord Vessel Description: 3 Vessels
[2024-09-01] MEDS: ACETAMINOPHEN 325 MG TABLET 650 MG PO (19:50)
[2024-09-01] MEDS: OXYTOCIN 30 UNITS/NS 500 ML 30 UNITS/500 ML BAG 125 UNITS IV CONT (20:00)
[2024-09-01] MEDS: IBUPROFEN 600 MG TABLET PO (23:15)
[2024-09-02 00:49] VITALS: BP 112/67; PULSE 89; RESP 18; TEMP 36.9; O2SAT 97
[2024-09-02 05:34] VITALS: BP 118/76; PULSE 90; RESP 18; TEMP 36.5; O2SAT 100
[2024-09-02 05:49] LABS: Hematocrit 31.8 % (37.0-47.0); Hemoglobin 10.7 g/dL (12.0-15.0)
--- NOTE | 2024-09-02 07:15 | P.PNOB_ITS ---
OB - PN: Subj Subjective Date/time seen: 09/02/24 07:15 Patient comments: no complaints, pain well controlled and tolerating diet [place] feeding status: exclusively breast feeding Narrative: patient doing well this AM. No complaints. Pain is well controlled. She reports minimal bleeding. She is ambulating and voiding without difficulty. She is tolerating PO. She denies N/V, fever, chills. OB - PN: Obj Data Labs 09/02/24 05:38 Labs: Laboratory Results - last 24 hr 09/02/24 05:38 Hgb 10.7 L Hct 31.8 L OB - PN A/P Plan day: 1 Plan: routine care Comments: patient doing well H/H stable afebrile, VSS pt desires infant circumcision. Risks, benefits, alternatives discussed. will plan for circumcision continue routine care Time Spent With Patient Time: Total time spent is greater than 50% in coordination of care (as documented) at patient's floor/unit and/or counseling patient: Time with patient: less than 15 minutes Review of Systems 2 Review of Systems: All systems reviewed & are unremarkable except as noted in HPI and below Exam 2 Const: General: comfortable and no acute distress Resp: Effort & Inspection: normal respiratory effort Cardio: Rate: regular rate GI: GI Palp: Yes Soft to palpation and No Tenderness to palpation present (GI) Auscultation: normal bowel sounds Other: fundus firm and below umbilicus. Psych: Affect: normal affect
[2024-09-02] MEDS: LANOLIN (LANSINOH) 7.5 GM CREAM 1 APPLIC TOPICAL (07:49)
[2024-09-02 07:50] VITALS: BP 114/77; PULSE 80; RESP 18; TEMP 37.2; O2SAT 99
[2024-09-02] MEDS: DOCUSATE SODIUM 100 MG CAPSULE PO ×2 (07:50→16:59)
[2024-09-02] MEDS: MULTIVIT/MIN/PREN/FOL AC/IRON TABLET 1 TAB PO (07:50)
[2024-09-02] MEDS: IBUPROFEN 600 MG TABLET PO ×3 (07:50→23:35)
[2024-09-02] MEDS: DIBUCAINE 1% OINTMENT 30 GM TUBE 1 APPLIC TOPICAL (08:05)
--- NOTE | 2024-09-02 09:00 | PC.NURSE ---
0815: Introductions were made and services were offered. Discussed with mother how feedings have gone so far. She has nipple soreness and worries that baby has not been latching deep enough. Patient is encouraged to call at the next feeding so we can work on latching. Resources provided for inpatient and outpatient services with the feeding sheet, mom/baby guide and name written on the communication board. Mother voiced understanding of information and will call if there is a request for assistance. Reported to the Primary RN. 0900: Patient called out for a latch check. Baby was latched to the left breast already. He had all of the nipple and areola in his mouth. We worked to get a little more tissue into his mouth with some breast compression. Mom was shown how to observe for a deep latch, wide mouth angle, chin to breast, and proper alignment. Left nipple was bleeding some per mom, unable to assess due to infant latched at this time. Mom is encouraged to pay close attention to how the latch feels from one feeding to the next and to correct any latches that do not feel right. Patient is advised to call out for any and all feedings today as needed. Primary RN updated.
[2024-09-02 12:05] VITALS: BP 109/64; PULSE 82; RESP 16; TEMP 37.2; O2SAT 98
[2024-09-02] MEDS: ACETAMINOPHEN 325 MG TABLET 650 MG PO ×2 (12:30→18:26)
--- NOTE | 2024-09-02 12:34 | WPDANLDPN2 ---
Anes-Prog Note L&D Date/Time: 09/02/24 12:34 Comfortable throughout: labor and delivery Neuraxial method: epidural Epidural/Spinal procedure site: clean & non-tender Neuro status: Neuro function grossly intact. Cardiovascular status: normal Respiratory status: normal Airway patency: baseline Mental status: baseline Post-Op hydration status: normal Vital Signs: Last Vital Signs Temp 37.2 C 09/02/24 12:05 Pulse 82 09/02/24 12:05 Resp 16 09/02/24 12:05 BP 109/64 09/02/24 12:05 Pulse Ox 98 09/02/24 12:05 O2 Del Method Room Air 09/02/24 00:15 Pain score (VAS): 1 I/O: Intake & Output 09/01/24 09/02/24 09/02/24 23:59 07:59 15:59 Output Total 300 Balance -300 Post-procedural complaints: none Patient feedback: Patient satisfied with anesthetic care.
[2024-09-02 18:30] VITALS: BP 118/87; PULSE 78; RESP 16; TEMP 36.6; O2SAT 100
[2024-09-02 19:57] VITALS: BP 114/76; PULSE 82; RESP 16; TEMP 36.5; O2SAT 98
[2024-09-03] MEDS: ACETAMINOPHEN 325 MG TABLET 650 MG PO ×2 (05:40→12:39)
[2024-09-03] MEDS: HYDROcodone/acetaminophen (*CRX) 5-325 MG TABLET 1 TAB PO (06:01)
--- NOTE | 2024-09-03 07:00 | PM.OBDSVD ---
DS: Admitting Diagnosis Discharge Date 09/03/24 Admitting Diagnosis intrauterine at term spontaneous rupture of membranes DS: Discharge Diagnosis Discharge Diagnosis (1) Normal vaginal delivery: Code(s): O80 - Encounter for full-term uncomplicated delivery Status: Acute OB - DS: Summary OB Procedures : None OB Procedures Intrapartum: Spontaneous Vag Delivery OB Procedures: : None Peripartum Data Laceration Description: Perineal - 1st Degree Episiotomy description: None Status at Discharge Functional status at discharge: independent ambulation Overall status at discharge: patient is back to baseline Time Spent with Patient Time attestation: Total time spent providing and/or coordinating discharge services: Time spent: Less than 30 minutes Exam Const: General: comfortable and no acute distress Resp: Effort & Inspection: normal respiratory effort Auscultation: clear to auscultation bilaterally Cardio: Rate: regular rate GI: GI Palp: Yes Soft to palpation Auscultation: normal bowel sounds Other: Fundus firm below umbilicus Psych: Appearance: grossly normal Mental Status: mental status grossly normal Affect: normal affect Discharge Plan Discharge Discharging Clinician: Aung Jackson Patient Disposition: Home Activity: as tolerated and pelvic rest Diet: regular Patient Instructions: Antibiotic Form, Vaginal Delivery (DC) Patient Language: Tamazight Stand Alone Forms: General Discharge Information Follow-up/Referrals: Steve Fuentes MD [Physician] - Discharge Medications: New sennosides-docusate sodium [Senna with Docusate Sodium] 8.6-50 mg tablet 1 tab-cap PO HS Qty: 60 0RF Tucks (witch jairon) 50 % pads, medicated 1 pad topical BID PRN (Reason: skin irritation) Qty: 40 0RF acetaminophen 500 mg tablet 500 mg PO Q6H PRN (Reason: pain) Qty: 30 0RF ibuprofen 600 mg tablet 600 mg PO Q6H PRN (Reason: pain) Qty: 30 0RF Continued vit-iron fum-folic ac 65 mg iron- 1 mg tablet 1 tablet PO DAILY magnesium 200 mg tablet 200 mg PO DAILY Date of admission: 09/01/24 01:54 Primary Care Provider: Claus Orlando Admitting Provider: Steve Fuentes Attending physician on admission: Steve Fuentes Condition: Stable
[2024-09-03 08:20] VITALS: BP 121/73; PULSE 77; RESP 18; TEMP 36.4; O2SAT 98
[2024-09-03] MEDS: MULTIVIT/MIN/PREN/FOL AC/IRON TABLET 1 TAB PO (09:12)
[2024-09-03] MEDS: IBUPROFEN 600 MG TABLET PO (09:45)
[2024-09-03] MEDS: DOCUSATE SODIUM 100 MG CAPSULE PO (13:38)
[2024-09-03] MEDS: MEASLES,MUMPS,RUBELLA VACCINE 0.5 ML VIAL SUB-Q (17:04)
[2024-09-06 09:23] VITALS: BP 141/85; PULSE 78; RESP 18; TEMP 36.7; O2SAT 100
== END 2024-09-03 17:12 | disposition home or self-care (01) | DRG 807 ==
LOC: ANHOB2 09-03 16:10 → ANHLDR 09-06 08:37
PROVIDERS: Obstetrics & Gynecology; Admitting Provider Obstetrics & Gynecology; PCP Family Medicine; Visit Provider Student in an Organized Health Care Education/Training Program
DX: O42.02 Full-term premature rupture of membranes, onset of labor within 24 hours of rupture (principal); Z37.0 Single live birth; Z3A.38 38 weeks gestation of pregnancy; O99.824 Streptococcus B carrier state complicating childbirth; O70.0 First degree perineal laceration during delivery
CPT/HCPCS: 36415; 85014; 85018; 85025; 86593; 86850; 86880; 86900; 86901; 86902; 90710; A9270; J0290; J2405; J2590; J2795

== ENCOUNTER 2024-09-07 21:51 | Observation (INO) | payer BC, SELFPAY ==
[2024-09-07] VITALS (39 sets, daily range): BP systolic 128–162; BP diastolic 85–99; PULSE 58–93; TEMP 36.3–36.5; O2SAT 97–100; BMI 24.3
--- NOTE | 2024-09-07 20:25 | PC.NURSE ---
Pt arrives to unit with elevated blood pressure at home.
--- OUTSIDE RECORDS SUMMARY | 2024-09-07 20:33 | XMS_ITS | Referral Summary ---
Author Organization [facility] [address] Address [address] [place] [address] Phone Care Team Providers Care Visual Arts Teacher Name Role Phone Referring, Unknown MD Primary [...] (10/20/2019): Added automatically from request for surgery [id number] Assessment & Plan (12/29/2019 3:34 PM HYDRAULIC CONTROLS TECHNICIAN): Chronic idiopathic constipation secondary to irritable bowel syndrome. I will increase Linzess to 290 micro g daily. Patient was also advised to use and drink juice every day with MiraLax. Follow-up in 3 months Blood in stool 10/20/2019 Overview (10/20/2019): Added automatically from request for surgery [id number] BMI 21.0-21.9, adult 09/19/2019 Generalized anxiety disorder [...] 09/25/2017 Assessment & Plan (01/01/2018 3:05 PM HYDRAULIC CONTROLS TECHNICIAN): Cont Aleve, use as directed. Referred [...] (11/03/2018): Added automatically from request for surgery [id number] Arthritis of right acromioclavicular joint 11/03/2018 09/19/2019 Overview (11/03/2018): Added automatically from request for surgery [id number] Biceps tendinitis on right 11/03/2018 0 09/19/2019 Overview (11/03/2018): Added automatically from request for surgery [id number] Nontraumatic incomplete tear of right rotator cuff [...] on file Legal Sex Female 7:32 PM HYDRAULIC CONTROLS TECHNICIAN Gender Identity Not on file Sexual Orientation Not on file Occupation Industry Job Start Date Job End Date Not on file Not on file Not on file Not on file Last Filed Vital Signs Vital Sign Reading Time Taken Comments Blood Pressure 120/82 03/27/2023 3:18 PM HYDRAULIC CONTROLS TECHNICIAN Pulse 91 12/29/2019 3:23 PM HYDRAULIC CONTROLS TECHNICIAN Temperature 36.6 C (97.8 F) 12/29/2019 3:23 PM HYDRAULIC CONTROLS TECHNICIAN Respiratory Rate 16 12/29/2019 3:23 PM HYDRAULIC CONTROLS TECHNICIAN Oxygen Saturation 99% 12/29/2019 3:23 PM HYDRAULIC CONTROLS TECHNICIAN Inhaled Oxygen Concentration - - Weight 52.6 kg (116 lb) 03/27/2023 3:18 PM HYDRAULIC CONTROLS TECHNICIAN Height 157.5 cm (5' 2) 03/27/2023 3:18 PM HYDRAULIC CONTROLS TECHNICIAN Body Mass Index 21.22 03/27/2023 3:18 PM HYDRAULIC CONTROLS TECHNICIAN Plan of Treatment Not on file Medical Devices Implanted Type Area Vice President & General Manager [employer] Device Identifier Shelf Expiration Date Model / Serial / Lot [employer] Ar-2923bc Pushlock 2.9mm 12.5mm Cannulated Eyelet Handle Waste Machine Offbearer Short - [id number] Implanted:Qty: 1 on 11/25/2018 by Scott Mayo MD at [facility] Right: Shoulder [employer] 08/15/2020 AR-2923BC / / [id number] Procedures Procedure Name Priority Date/Time Associated Diagnosis Comments PAP WITH REFLEX TO HIGH RISK HPV Routine 03/07/2022 9:10 AM HYDRAULIC CONTROLS TECHNICIAN Screening for malignant neoplasm of the cervix from Last 3 Months or Most Recently Relevant to Health Maintenance Results * Pap with reflex to High Risk HPV (03/07/2022 9:10 AM HYDRAULIC CONTROLS TECHNICIAN) Thin prep (Pap test) 03/07/2022 9:10 AM HYDRAULIC CONTROLS TECHNICIAN 03/07/2022 9:10 AM HYDRAULIC CONTROLS TECHNICIAN Narrative PATHOLOGY CH - 03/11/2022 1:09 PM HYDRAULIC CONTROLS TECHNICIAN [facility] Department of Pathology [address] [place] [id number] Final Report Note to Patients: This [...] the details. Patient Name: LYUDMILA CODY Address: [address] [place] [address] Gender: F : 1995 (Age: 26) Service: Location: N : [id number] [facility] #: [id number] Patient Type: SPECIMEN Taken: 03/07/2022 Received: 03/07/2022 Accessioned:: 03/10/2022 Reported: 03/11/2022 Physician(s): MD Sandra Perez MD Diagnosis: Source of Specimen: Imaged Thinprep Pap Test w/ Reflex HPV - Appeals Manager Cytologic Material Specimen Adequacy: - Satisfactory for evaluation; endocervical/transformation zone component present General Category: - Negative for intraepithelial lesion or malignancy KEITH Pathak(ASCP) Report Electronically Reviewed and Signed Out By KEITH Pathak(ASCP) 03/11/2022 13:09:42Specimen(s) Received: A: Imaged Thinprep Pap Test w/ Reflex HPV - Appeals Manager Cytologic Material Clinical History: Last Menstrual Period: [...] determined by the Surgical Pathology Department at [facility] as part of an ongoing quality lab technician program and in compliance with [...] characteristics determined by the Surgical Pathology Department [facility]. It has not been cleared or approved by the U. S. Food and Drug Administration. Sandra Vincent MD LAB CYTOLOGY ORDERABL ES Final Result PATHOLOGY [address] [place] [address] from Last 3 Months or Most Recently Relevant to Health Maintenance Insurance [email or web address] MD [employer] [place] [address] [employer] OPEN ACCESS Advance Directives For more information, please contact: [phone] * Full Code (Latest Code Status on File) Date Activated Date Inactivated Comments 11/28/2019 1:04 PM 11/28/2019 7:27 PM Care Teams Visual Arts Teacher Relationship Specialty Start Date End Date Referring, Unknown, PCP - General Pediatrics 03/25/24
--- OUTSIDE RECORDS SUMMARY | 2024-09-07 20:33 | XMS_ITS | Encounter Summary ---
Demographics Address [address] [place] [address] [place] [address] Mobile Phone Home Phone Email Address Preferred Language Singaporean Marital Status Single Cheondoism Affiliation Unknown Race White Ethnic Group Not or Lati no Author Organization [facility] Address [address] [place] [address] Phone Care Team Providers Care Automatic Beam Warper Tender Name Role Phone Tania Berry DO Primary Care Provider [phone] Referring, Unknown MD Primary Care Provider Unav ailable Encounter Details Date Type Department Care Team (Late st Contact Info) Description 03/11/2022 Orders Only [facility] [address] [place] [address] Scanning, Provider Social History Tobacco [...] on file Legal Sex Female 7:32 PM CIPHER EXPERT Gender Identity Not on file Sexual Orientation [...] on filedocumented in this encounter Care Teams Automatic Beam Warper Tender Relationship Specialty Start Date End Date Tania Berry DO PCP - General Family Medicine 09/24/17 11/26/23 Referring, Unknown, PCP - General Pediatrics 03/25/24 documented as of this encounter
--- OUTSIDE RECORDS SUMMARY | 2024-09-07 20:33 | XMS_ITS | Clinical Summary ---
Author Organization [facility] [address] Address [address] [place] [address] Phone Care Team Providers Care Precision Jig Grinder Name Role Phone Referring, Unknown MD Primary [...] (10/20/2019): Added automatically from request for surgery [id number] Assessment & Plan (12/29/2019 3:34 PM DRY ROASTER): Chronic idiopathic constipation secondary to irritable bowel syndrome. I will increase Linzess to 290 micro g daily. Patient was also advised to use and drink juice every day with MiraLax. Follow-up in 3 months Blood in stool 10/20/2019 Overview (10/20/2019): Added automatically from request for surgery [id number] BMI 21.0-21.9, adult 09/19/2019 Generalized anxiety disorder [...] 09/25/2017 Assessment & Plan (01/01/2018 3:05 PM DRY ROASTER): Cont Aleve, use as directed. Referred to [...] (11/03/2018): Added automatically from request for surgery [id number] Arthritis of right acromioclavicular joint 11/03/2018 09/19/2019 Overview (11/03/2018): Added automatically from request for surgery [id number] Biceps tendinitis on right 11/03/2018 0 09/19/2019 Overview (11/03/2018): Added automatically from request for surgery [id number] Nontraumatic incomplete tear of right rotator cuff [...] on file Legal Sex Female 7:32 PM DRY ROASTER Gender Identity Not on file Sexual Orientation [...] Comments Blood Pressure 120/82 03/27/2023 3:18 PM DRY ROASTER Pulse 91 12/29/2019 3:23 PM DRY ROASTER Temperature 36.6 C (97.8 F) 12/29/2019 3:23 PM DRY ROASTER Respiratory Rate 16 12/29/2019 3:23 PM DRY ROASTER Oxygen Saturation 99% 12/29/2019 3:23 PM DRY ROASTER Inhaled Oxygen Concentration - - Weight 52.6 kg (116 lb) 03/27/2023 3:18 PM DRY ROASTER Height 157.5 cm (5' 2) 03/27/2023 3:18 PM DRY ROASTER Body Mass Index 21.22 03/27/2023 3:18 PM DRY ROASTER Plan of Treatment Health Maintenance Due Date [...] this topic Medical Devices Implanted Type Area Captain Waiter Device Identifier Shelf Expiration Date Model / Serial / Lot [employer] Ar-2923bc Pushlock 2.9mm 12.5mm Cannulated Eyelet Handle Refining Supervisor Short - [id number] Implanted:Qty: 1 on 11/25/2018 by Scott Mayo MD at [facility] Right: Shoulder [employer] 08/15/2020 AR-2923BC / / [id number] Procedures Procedure Name Priority Date/Time Associated Diagnosis Comments PAP WITH REFLEX TO HIGH RISK HPV Routine 03/07/2022 9:10 AM DRY ROASTER Screening for malignant neoplasm of the cervix from Last 3 Months or Most Recently Relevant to Health Maintenance Results * Pap with reflex to High Risk HPV (03/07/2022 9:10 AM DRY ROASTER) Thin prep (Pap test) 03/07/2022 9:10 AM DRY ROASTER 03/07/2022 9:10 AM DRY ROASTER Narrative PATHOLOGY CH - 03/11/2022 1:09 PM DRY ROASTER [facility] Department of Pathology [address] [place], [place] [id number] Final Report Note to Patients: This report [...] the details. Patient Name: LYUDMILA CODY Address: [address] [place] [address] Gender: F : 1995 (Age: 26) Service: Location: N : [id number] [facility] #: [id number] Patient Type: SPECIMEN Taken: 03/07/2022 Received: 03/07/2022 Accessioned:: 03/10/2022 Reported: 03/11/2022 Physician(s): MD Sandra Perez MD Diagnosis: Source of Specimen: Imaged Thinprep Pap Test w/ Reflex HPV - Surgery Assistant Cytologic Material Specimen Adequacy: - Satisfactory for evaluation; endocervical/transformation zone component present General Category: - Negative for intraepithelial lesion or malignancy KEITH Pathak(ASCP) Report Electronically Reviewed and Signed Out By KEITH Pathak(ASCP) 03/11/2022 13:09:42Specimen(s) Received: A: Imaged Thinprep Pap Test w/ Reflex HPV - Surgery Assistant Cytologic Material Clinical History: Last Menstrual Period: [...] determined by the Surgical Pathology Department at [facility] as part of an ongoing assistant quality manager program and in compliance with [...] characteristics determined by the Surgical Pathology Department [facility]. It has not been cleared or approved by the U. S. Food and Drug Administration. Sandra Vincent MD LAB CYTOLOGY ORDERABL ES Final Result Performing Organization Address City/State/[place]IP [place] Phone Number PATHOLOGY [address] [place] [address] from Last 3 Months or Most Recently Relevant to Health Maintenance Insurance [employer] [facility] [employer] OPEN ACCESS [employer] OPEN ACCESS Advance Directives For more information, please contact: [phone] * Full Code (Latest Code Status on File) Date Activated Date Inactivated Comments 11/28/2019 1:04 PM 11/28/2019 7:27 PM Care Teams Precision Jig Grinder Relationship Specialty Start Date End Date Referring, Unknown, PCP - General Pediatrics 03/25/24
[2024-09-07 21:18] LABS: Hematocrit 31.6 % (37.0-47.0); Hemoglobin 10.8 g/dL (12.0-15.0); Immature Granulocyte Percent A 0.9 % (0-0.5); Lymphocytes Absolute Auto 3.12 K/mm3 (0.9-3.2); Mean Corpuscular HGB Conc 34.2 g/dl (32-36); Mean Corpuscular Hemoglobin 32.0 pg (26-34); Mean Corpuscular Volume 93.8 fl (80-100); Nucleated Red Blood Cells Absolute Auto 0.000 K/mm3 (0.0-0.012); Nucleated Red Blood Cells Perc 0.0 % (0.0-0.2); Platelet Count Result 319 k/mm3 (150-375); Red Blood Count 3.37 M/mm3 (4.2-5.4); White Blood Count 11.5 K/mm3 (4.5-10.0)
[2024-09-07 21:39] LABS: Alanine Aminotransferase 19 U/L (6-35); Albumin Level 3.8 g/dL (3.5-5.1); Alkaline Phosphatase 107 U/L (38-126); Anion Gap 9 mmol/L (4-12); Aspartate Amino Transferase 25 U/L (14-36); Bilirubin,Total 0.3 mg/dL (0.2-1.3); Blood Urea Nitrogen 8 mg/dL (7-17); Calcium 9.0 mg/dL (8.4-10.2); Carbon Dioxide 23 mmol/L (22-30); Chloride 104 mmol/L (98-107); Estimated CRCL calculation 86 ml/min; Estimated Glomerular Filt Rate > 60; Glucose 120 mg/dL (65-110); Potassium 3.9 mmol/L (3.4-5.0); Sodium 136 mmol/L (137-145); Total Protein 7.2 g/dL (6.3-8.2); Uric Acid 3.9 mg/dL (2.5-7.5)
--- NOTE | 2024-09-07 21:39 | PC.NURSE ---
Called Dr. Fuentes, update on pt, blood pressure, headache not resolved by Tylenol, blurred and spots in vision, and labs. Orders received to admit to observation, and administer labetalol 200 mg every eight hours.
[2024-09-07] MEDS: LABETALOL HCL 100 MG TABLET 200 MG PO (22:20)
[2024-09-08] VITALS (8 sets, daily range): BP systolic 112–134; BP diastolic 74–89; PULSE 70–111; RESP 14–18; TEMP 36.4–36.7; O2SAT 96–100
[2024-09-08] MEDS: LABETALOL HCL 100 MG TABLET 200 MG PO (06:36)
--- NOTE | 2024-09-08 06:45 | PC.NURSE ---
Dr. Fuentes in to see pt. Discussed BP's and probably send her home on a lower dose of the Labetalol. Pt to make appointment for BP check on Thursday.
--- NOTE | 2024-09-09 07:58 | PM.OBTRLD ---
OB - Triage/Final Diagnosis Visit Information Reason for evaluation: other ( preeclampsia without severe features) Comments/Additional reasons for admission: I have assessed the risk for this patient, Diana Yandel Ramsay, and determined that she would benefit from observation care. Evaluation Laboratory results: Laboratory Tests 09/07/24 20:53 WBC 11.5 H RBC 3.37 L Hgb 10.8 L Hct 31.6 L MCV 93.8 MCH 32.0 MCHC 34.2 RDW 12.6 Plt Count 319 MPV 9.6 Immature Gran % (Auto) 0.9 H Neut % (Auto) 62.3 Lymph % (Auto) 27.2 [place] % (Auto) 5.9 Eos % (Auto) 3.1 Baso % (Auto) 0.6 Lymph # (Auto) 3.12 [place] # (Auto) 0.7 H Eos # (Auto) 0.4 H Baso # (Auto) 0.1 Abs Immat Gran (auto) 0.10 H Absolute Neuts (auto) 7.1 H Absolute Nucleated RBC 0.000 Nucleated RBC % 0.0 Sodium 136 L Potassium 3.9 Chloride 104 Carbon Dioxide 23 Anion Gap 9 BUN 8 Creatinine 0.66 L Estim Creat Clear Calc 86 Estimated GFR > 60 Glucose 120 H Uric Acid 3.9 Calcium 9.0 Total Bilirubin 0.3 AST 25 ALT 19 Alkaline Phosphatase 107 Total Protein 7.2 Albumin 3.8 Vital signs: Vital Signs - 24 hr 09/08/24 08:26 Pulse Rate 86 Blood Pressure 125/79
== END 2024-09-08 10:04 | disposition home or self-care (01) ==
LOC: ANHOBOP 21:51 → ANHOBPP 21:51
PROVIDERS: Admitting Provider Obstetrics & Gynecology; PCP Family Medicine; Visit Provider Obstetrics & Gynecology
DX: O14.05 Mild to moderate pre-eclampsia, complicating the puerperium (principal)
CPT/HCPCS: 36415; 80053; 84550; 85025; A9270; G0378; G0379

== ENCOUNTER 2024-09-16 10:08 | Outpatient (CLI) | payer BC, SELFPAY ==
--- OUTSIDE RECORDS SUMMARY | 2024-09-16 10:12 | XMS_ITS | Clinical Summary ---
Author Organization [facility] [address] Address [address] [place] [address] Phone Care Team Providers Care General Manager Name Role Phone Referring, Unknown MD Primary [...] (10/20/2019): Added automatically from request for surgery [id number] Assessment & Plan (12/29/2019 3:34 PM RECONCILIATION CLERK): Chronic idiopathic constipation secondary to irritable bowel syndrome. I will increase Linzess to 290 micro g daily. Patient was also advised to use and drink juice every day with MiraLax. Follow-up in 3 months Blood in stool 10/20/2019 Overview (10/20/2019): Added automatically from request for surgery [id number] BMI 21.0-21.9, adult 09/19/2019 Generalized anxiety disorder [...] 09/25/2017 Assessment & Plan (01/01/2018 3:05 PM RECONCILIATION CLERK): Cont Aleve, use as directed. Referred to [...] (11/03/2018): Added automatically from request for surgery [id number] Arthritis of right acromioclavicular joint 11/03/2018 09/19/2019 Overview (11/03/2018): Added automatically from request for surgery [id number] Biceps tendinitis on right 11/03/2018 0 09/19/2019 Overview (11/03/2018): Added automatically from request for surgery [id number] Nontraumatic incomplete tear of right rotator cuff [...] on file Legal Sex Female 7:32 PM RECONCILIATION CLERK Gender Identity Not on file Sexual [...] Comments Blood Pressure 120/82 03/27/2023 3:18 PM RECONCILIATION CLERK Pulse 91 12/29/2019 3:23 PM RECONCILIATION CLERK Temperature 36.6 C (97.8 F) 12/29/2019 3:23 PM RECONCILIATION CLERK Respiratory Rate 16 12/29/2019 3:23 PM RECONCILIATION CLERK Oxygen Saturation 99% 12/29/2019 3:23 PM RECONCILIATION CLERK Inhaled Oxygen Concentration - - Weight 52.6 kg (116 lb) 03/27/2023 3:18 PM RECONCILIATION CLERK Height 157.5 cm (5' 2) 03/27/2023 3:18 PM RECONCILIATION CLERK Body Mass Index 21.22 03/27/2023 3:18 PM RECONCILIATION CLERK Plan of Treatment Health Maintenance Due Date [...] this topic Medical Devices Implanted Type Area Line Mechanic Device Identifier Shelf Expiration Date Model / Serial / Lot [employer] Ar-2923bc Pushlock 2.9mm 12.5mm Cannulated Eyelet Handle Terrazzo Mechanic Short - [id number] Implanted:Qty: 1 on 11/25/2018 by Scott Mayo MD at [facility] Right: Shoulder [employer] 08/15/2020 AR-2923BC / / [id number] Procedures Procedure Name Priority Date/Time Associated Diagnosis Comments PAP WITH REFLEX TO HIGH RISK HPV Routine 03/07/2022 9:10 AM RECONCILIATION CLERK Screening for malignant neoplasm of the cervix from Last 3 Months or Most Recently Relevant to Health Maintenance Results * Pap with reflex to High Risk HPV (03/07/2022 9:10 AM RECONCILIATION CLERK) Thin prep (Pap test) 03/07/2022 9:10 AM RECONCILIATION CLERK 03/07/2022 9:10 AM RECONCILIATION CLERK Narrative PATHOLOGY CH - 03/11/2022 1:09 PM RECONCILIATION CLERK [facility] Department of Pathology [address] [place], [place] [id number] Final Report Note to Patients: This report [...] the details. Patient Name: LYUDMILA CODY Address: [address] [place] [address] Gender: F : 1995 (Age: 26) Service: Location: N : [id number] [facility] #: [id number] Patient Type: SPECIMEN Taken: 03/07/2022 Received: 03/07/2022 Accessioned:: 03/10/2022 Reported: 03/11/2022 Physician(s): MD Sandra Perez MD Diagnosis: Source of Specimen: Imaged Thinprep Pap Test w/ Reflex HPV - Railway Shunter Cytologic Material Specimen Adequacy: - Satisfactory for evaluation; endocervical/transformation zone component present General Category: - Negative for intraepithelial lesion or malignancy KEITH Pathak(ASCP) Report Electronically Reviewed and Signed Out By KEITH Pathak(ASCP) 03/11/2022 13:09:42Specimen(s) Received: A: Imaged Thinprep Pap Test w/ Reflex HPV - Railway Shunter Cytologic Material Clinical History: Last Menstrual Period: [...] determined by the Surgical Pathology Department at [facility] as part of an ongoing microbiology quality control technician program and in compliance with federally [...] characteristics determined by the Surgical Pathology Department [facility]. It has not been cleared or approved by the U. S. Food and Drug Administration. Sandra Vincent MD LAB CYTOLOGY ORDERABL ES Final Result Performing Organization Address City/State/ZIP Co ar Phone Number PATHOLOGY [address] [place] [address] from Last 3 Months or Most Recently Relevant to Health Maintenance Insurance [employer] [facility] HEALTHLINK OPEN ACCESS HEALTHLINK OPEN ACCESS Advance Directives For more information, please contact: [phone] * Full Code (Latest Code Status on File) Date Activated Date Inactivated Comments 11/28/2019 1:04 PM 11/28/2019 7:27 PM Care Teams General Manager Relationship Specialty Start Date End Date Referring, Unknown, PCP - General Pediatrics 03/25/24
--- OUTSIDE RECORDS SUMMARY | 2024-09-16 10:12 | XMS_ITS | Referral Summary ---
Author Organization [facility] [address] Address [address] [place] [address] Phone Care Team Providers Care Muleser Name Role Phone Referring, Unknown MD Primary [...] (10/20/2019): Added automatically from request for surgery [id number] Assessment & Plan (12/29/2019 3:34 PM HOSPICE OFFICE COORDINATOR): Chronic idiopathic constipation secondary to irritable bowel syndrome. I will increase Linzess to 290 micro g daily. Patient was also advised to use and drink juice every day with MiraLax. Follow-up in 3 months Blood in stool 10/20/2019 Overview (10/20/2019): Added automatically from request for surgery [id number] BMI 21.0-21.9, adult 09/19/2019 Generalized anxiety disorder [...] 09/25/2017 Assessment & Plan (01/01/2018 3:05 PM HOSPICE OFFICE COORDINATOR): Cont Aleve, use as directed. Referred to [...] (11/03/2018): Added automatically from request for surgery [id number] Arthritis of right acromioclavicular joint 11/03/2018 09/19/2019 Overview (11/03/2018): Added automatically from request for surgery [id number] Biceps tendinitis on right 11/03/2018 0 09/19/2019 Overview (11/03/2018): Added automatically from request for surgery [id number] Nontraumatic incomplete tear of right rotator cuff [...] on file Legal Sex Female 7:32 PM HOSPICE OFFICE COORDINATOR Gender Identity Not on file Sexual Orientation Not on file Occupation Industry Job Start Date Job End Date Not on file Not on file Not on file Not on file Last Filed Vital Signs Vital Sign Reading Time Taken Comments Blood Pressure 120/82 03/27/2023 3:18 PM HOSPICE OFFICE COORDINATOR Pulse 91 12/29/2019 3:23 PM HOSPICE OFFICE COORDINATOR Temperature 36.6 C (97.8 F) 12/29/2019 3:23 PM HOSPICE OFFICE COORDINATOR Respiratory Rate 16 12/29/2019 3:23 PM HOSPICE OFFICE COORDINATOR Oxygen Saturation 99% 12/29/2019 3:23 PM HOSPICE OFFICE COORDINATOR Inhaled Oxygen Concentration - - Weight 52.6 kg (116 lb) 03/27/2023 3:18 PM HOSPICE OFFICE COORDINATOR Height 157.5 cm (5' 2) 03/27/2023 3:18 PM HOSPICE OFFICE COORDINATOR Body Mass Index 21.22 03/27/2023 3:18 PM HOSPICE OFFICE COORDINATOR Plan of Treatment Not on file Medical Devices Implanted Type Area Mural Artist Device Identifier Shelf Expiration Date Model / Serial / Lot [employer] Ar-2923bc Pushlock 2.9mm 12.5mm Cannulated Eyelet Handle Lithograph Printer Short - [id number] Implanted:Qty: 1 on 11/25/2018 by Scott Mayo MD at [facility] Right: Shoulder [employer] 08/15/2020 AR-2923BC / / [id number] Procedures Procedure Name Priority Date/Time Associated Diagnosis Comments PAP WITH REFLEX TO HIGH RISK HPV Routine 03/07/2022 9:10 AM HOSPICE OFFICE COORDINATOR Screening for malignant neoplasm of the cervix from Last 3 Months or Most Recently Relevant to Health Maintenance Results * Pap with reflex to High Risk HPV (03/07/2022 9:10 AM HOSPICE OFFICE COORDINATOR) Thin prep (Pap test) 03/07/2022 9:10 AM HOSPICE OFFICE COORDINATOR 03/07/2022 9:10 AM HOSPICE OFFICE COORDINATOR Narrative PATHOLOGY CH - 03/11/2022 1:09 PM HOSPICE OFFICE COORDINATOR [facility] Department of Pathology [address] [place] [id number] Final Report Note to Patients: This [...] the details. Patient Name: LYUDMILA CODY Address: [address] [place] [address] Gender: F : 1995 (Age: 26) Service: Location: N : [id number] [facility] #: [id number] Patient Type: SPECIMEN Taken: 03/07/2022 Received: 03/07/2022 Accessioned:: 03/10/2022 Reported: 03/11/2022 Physician(s): MD Sandra Perez MD Diagnosis: Source of Specimen: Imaged Thinprep Pap Test w/ Reflex HPV - Primer Waterproofing Machine Operator Cytologic Material Specimen Adequacy: - Satisfactory for evaluation; endocervical/transformation zone component present General Category: - Negative for intraepithelial lesion or malignancy KEITH Pathak(ASCP) Report Electronically Reviewed and Signed Out By KEITH Pathak(ASCP) 03/11/2022 13:09:42Specimen(s) Received: A: Imaged Thinprep Pap Test w/ Reflex HPV - Primer Waterproofing Machine Operator Cytologic Material Clinical History: Last Menstrual Period: [...] [facility] as part of an ongoing senior data quality analyst program and in compliance with federally mandated [...] determined by the Surgical Pathology Department [facility]. It has not been cleared or approved by the U. S. Food and Drug Administration. Sandra Vincent MD LAB CYTOLOGY ORDERABL ES Final Result PATHOLOGY [address] [place] [address] from Last 3 Months or Most Recently Relevant to Health Maintenance Insurance [employer] [place] [address] HEALTHLINK OPEN ACCESS Advance Directives For more information, please contact: [phone] * Full Code (Latest Code Status on File) Date Activated Date Inactivated Comments 11/28/2019 1:04 PM 11/28/2019 7:27 PM Care Teams Muleser Relationship Specialty Start Date End Date Referring, Unknown, MD PCP - General Pediatrics 03/25/24
--- OUTSIDE RECORDS SUMMARY | 2024-09-16 10:12 | XMS_ITS | Encounter Summary ---
Demographics Address [address] [place] [address] [place] [address] Mobile Phone Home Phone Email Address Preferred Language Monegasque Marital Status Single Confucianism Affiliation Unknown Race White Ethnic Group Not or Lati no Author Organization [facility] Address [address] [place] [address] Phone Care Team Providers Care Lone Lead Lineman Name Role Phone Tania Berry DO Primary Care Provider [phone] Referring, Unknown MD Primary Care Provider Unav ailable Encounter Details Date Type Department Care Team (Late st Contact Info) Description 03/11/2022 Orders Only [facility] [address] [place] [place] [address] Scanning, Provider Social History Tobacco [...] on file Legal Sex Female 7:32 PM MANAGER SURGICAL Gender Identity Not on file Sexual Orientation [...] on filedocumented in this encounter Care Teams Lone Lead Lineman Relationship Specialty Start Date End Date Tania Berry DO PCP - General Family Medicine 09/24/17 11/26/23 Referring, Unknown, PCP - General Pediatrics 03/25/24 documented as of this encounter
--- NOTE | 2024-09-16 10:15 | PC.NURSE ---
In- 1000 Out- 1050 Reason for visit: latch difficulty and pump assistance History: Diana delivered vaginally 2 weeks ago. Her history includes preeclampsia requiring blood pressure medication. She delivered baby isabel [place] without complications. She breastfed in the hospital with some nipple soreness but no significant nipple trauma. She has been triple feeding because latching is a struggle and sometimes baby is too fussy to breastfeed. She then pumps and supplements with breast milk and/or formula. She has two wearable pumps and is able to pump 1-2 ounces most of the time. She brought her Milo pump and we worked with it to determine correct fit, settings, and suction. Infant History: Baby isabel [place] was born at 38 weeks. He does not have any significant history. He is 2 weeks old and is back above weight. He appears healthy and well cared for. Most of his difficulty comes from struggle with latching. Mom states he gets very fussy sometimes and is not able to breastfeed so he receives a bottle. When he does latch mom states that he gets very sleepy and does not suckle vigorously. He will occasionally have a good that does not require supplementation afterwards. He takes 3 ounces of supplement most of the time. Observations: Baby is sleepy but wakes when we place him on the scale. Mom begins the feeding in cradle hold. Baby searches for the breast but is unable to grasp the nipple. Mom is assisted to adjust her hands to a cross cradle hold. We reviewed that it's important to hold baby low on his head, behind the ears. She has noticed that when she has used this position in the past he gets very fussy and it may be from her hand placed too high on the back of his head. In cross cradle, mom needs very minimal assistance to latch. Baby's lips are flanged out and once he is maintaining the latch mom is able to relax her arm and hold him in more of a cradle position. He needs frequent stimulation to suck and does not actively feed for more than a few minutes. We switch to the right side and mom is able to latch independently in cross cradle. Baby's bottom lip is rolled in so mom is shown how to pull on his chin to assist with flanging the lip out. Mom declines any nipple pain. Baby is more eager on the right side and has bursts of 1-3 sucks per swallow. He feeds intermittently for about ten minutes from this breast and then lets go on his own. He seems content so we proceed with weighing him and moving on to work with mom's pump. Dad supplemented baby with 2 oz of formula after a few minutes because he began to root and fuss. Mom has a Milo and a Mom Cozy, both wearable pumps. She brought the Milo and we did some trouble shooting to get the pump to suck effectively. Once it was providing adequate suction, mom was able to turn the suction up to the maximum level. We reviewed sizing of flanges and she used a ax survey worker and the pump manual guidelines to determine that she needed the 24mm flange. We discussed the possibility that a plug in pump may give her better results but that some moms are able to have an abundant supply using just a wearable pump. She pumps for about 15 minutes with minimal results, about 3ml. Reviewed with her that being at home in her most comfortable place is going to allow her to relax more and she will probably be able to pump a greater volume with practice. weight: 6 # 0 Lowest weight: 6 # 0 Last weight: 6 # 4 Pre-feed weight: 2963 (6-9 fully dressed) Post-feed weight: 2982 Transfer volume: 19ml Required daily intake: approximately 17oz/day (or about 2 oz/feeding) per the Pocket Guide for Management Plan of Care: Parents are encourage not to spend too much time on any one step of triple feedings because it is extremely time consuming. Reviewed with mom that her milk is still maturing and that with frequent and consistent hands on pumping she should be able to increase her supply. We discussed that baby is very capable of transferring milk at breast and that having a preference for the faster flow of the bottle may affect . Parents are educated on paced feeding, reducing volume of feedings (maybe 2.5oz rather than 3 oz) so baby is more ready at the next , pumping or expressing for a few minutes prior to latching to elicit a let down, and offering a small volume from the bottle before attempting to latch at breast. Dad is present and is very supportive and involved. Mom asks when she should stop 'trying' and she is supported to reflect on how important providing breast milk is to her and how stressed these struggles have made her. Only she knows what the right thing is for her and her family. She knows that any volume of breast milk provided benefits baby and that time at breast is not just about feeding but also about bonding and nurturing. Mom seems positive after talking and had a lot of great questions. Follow up plans: Diana is encouraged to call Pr[facility] for any questions regarding our appointment today. She is also welcome to return at any time for another weighted feeding. She will continue to follow with her contract design agent as scheduled. The team will follow up with a phone call to Diana early next week to see how things are going.
== END 2024-09-16 10:09 | disposition home or self-care (01) ==
LOC: ANHOBOP 10:09
PROVIDERS: PCP Family Medicine; Visit Provider Pediatrics
DX: Z39.1 Encounter for care and examination of lactating mother (principal)
CPT/HCPCS: 99202; G0463